=== PATIENT | female | born 1955 | race Caucasian/White ===

== ENCOUNTER 2019-09-29 17:05 | Inpatient (IN) ==
[2019-09-29] MEDS ORDERED: LACTATED RINGERS 1,000 ML IV ONE (17:29)
[2019-09-29] MEDS ORDERED: cefTRIAXone 1 GM VIAL IV ONE (18:08)
--- NOTE | 2019-09-29 18:10 | Emergency Department Note ---
Female Urogenital HPI - General Chief complaint: Urogenital-Female Stated complaint: "fever, low back pain and can't urinate" Time Seen by Provider: 09/29/19 17:27 Source: patient, family Mode of arrival: ambulatory Limitations: physical limitation - History of Present Illness HPI Narrative: This patient has had some pelvic discomfort left flank pain but is a bit debilitated due to Parkinson's disease. She does have positive urine dip for infection. No fever chills some generalized weakness. - Related Data Home Medications Medication Instructions Recorded Confirmed Carbidopa/Levodopa 25/100 [Sinemet 3 tab PO 5XD 12/13/15 05/29/19 25/100] Levothyroxine Sodium [Levoxyl] 25 mcg PO DAILY 12/13/15 05/29/19 Losartan/Hctz 50/12.5 [Hyzaar 1 tab PO BID 12/13/15 05/29/19 50/12.5] Lovastatin [Mevacor] 20 mg PO HS 12/13/15 05/29/19 metFORMIN HCL [Glucophage] 1,500 mg PO TID 12/13/15 05/29/19 ALPRAZolam [Xanax] 0.25 mg PO HSP PRN 05/29/19 05/29/19 Carbidopa/Levodopa Cr 50/200 1 tab PO HS 05/29/19 05/29/19 [Sinemet Cr 50/200] Naproxen (Pp) [Aleve 220Mg (Pp)] 220 mg PO BID PRN 05/29/19 05/29/19 Nortriptyline [Pamelor] 25 mg PO HS 05/29/19 05/29/19 Adult Aspirin PRN 09/29/19 Iron .ROUTE DAILY 09/29/19 glipiZIDE [Glipizide ER] 5 mg PO DAILY 09/29/19 09/29/19 Allergies Allergy/AdvReac Type Severity Reaction Status Date / Time codeine Allergy Mild Vomiting Verified 09/29/19 19:54 Review of Systems All systems ED: reviewed and negative except as stated. Past Medical History - Past Medical History [facility] Narrative: Medical History Muscle spasm of left shoulder (Acute) Upper respiratory infection (Acute) Medical history: Reports: asthma, other (Parkinson's disease) Surgical history ED: Reports: non-contributory - Social History smoking status: Never smoker Alcohol use: Reports: None Drug use: Reports: none Physical Exam Limitations: physical limitation General appearance: lethargic Head: atraumatic Eye: Present: normal appearance ENT: Present: normal exam Neck: Present: normal inspection Chest: Present: normal inspection Respiratory: Present: normal lung sounds bilaterally Cardiovascular: Present: regular rate, normal rhythm, normal heart sounds Abdominal: Present: soft, tenderness. Absent: distention, guarding Abdominal tenderness: Present: suprapubic, mild Back: Present: CVA tenderness (R) Neurological: Present: alert Psychiatric: Present: normal affect Skin: Present: warm, dry Course Vital Signs Temperature 98.4 F 09/29/19 17:07 Pulse Rate 76 09/29/19 17:07 Respiratory Rate 18 09/29/19 17:07 Blood Pressure 117/86 09/29/19 17:07 Pulse Oximetry (%) 99 09/29/19 17:07 Temperature 98.4 F 09/29/19 17:07 Pulse Rate 114 H 09/29/19 19:46 Respiratory Rate 21 09/29/19 19:46 Blood Pressure 135/80 09/29/19 19:46 Pulse Oximetry (%) 94 09/29/19 19:46 Urogenital-Female - MDM Narrative Medical decision making narrative: Patient initially had UTI on her urinalysis but then other lab work came back that was worrisome for sepsis with a lactic acid of 4.7 a creatinine of two- point wonders to the tripling in 4 months. Also had an elevated anion gap. Her hemoglobin has dropped 4 units from 13-9 over the last 4 months but her stool was guaiac negative. We did a CT of chest abdomen and pelvis which shows evidence of right nephritis or pyelonephritis. She has been cultured and given Rocephin and Zosyn. She will be admitted to the hospital by Dr. Stiles. We did give her 30 cc/kg of lactated Ringer's. - Lab Data Lab results reviewed: Yes I reviewed the patient's lab results. Result diagrams: 09/29/19 18:02 09/29/19 18:02 Lab Results 09/29/19 09/29/19 09/29/19 Range/Units 18:02 18:02 18:02 WBC 19.7 H (4.50-11.00) K/mcL RBC 3.70 (3.59-5.38) M/mcL Hgb 9.1 L (11.2-15.7) g/dL Hct 29.9 L (34.1-44.9) % POC Hct (36.0-48.0) % MCV 80.8 (80.0-100.0) fL MCH 24.6 L (26.0-34.0) pg MCHC 30.4 L (31.0-36.0) g/dL RDW 16.8 H (11.5-14.5) % Plt Count 342 (140-440) K/mcL MPV 9.2 (7.4-10.4) fL Gran % 88.1 H (38.0-78.0) % Lymph % (Auto) 4.2 L (15.5-49.0) % [place] % (Auto) 7.2 (1.0-12.0) % Eos % (Auto) 0.3 (0.0-7.0) % Baso % (Auto) 0.2 (0.0-2.0) % Gran # 17.31 H (1.80-8.00) K/mcL Lymph # (Auto) 0.83 L (1.50-4.80) K/mcL [place] # (Auto) 1.41 H (0.10-0.90) K/mcL Eos # (Auto) 0.06 (0.00-0.70) K/mcL Baso # (Auto) 0.04 (0.00-0.30) K/mcL VBG Lactic Acid 4.7 H* (0.5-2.0) mmol/L POC Sodium (133-145) mmol/L Sodium 129 L (133-145) mmol/L POC Potassium (3.3-5.1) mmol/L Potassium 3.4 (3.3-5.1) mmol/L POC Chloride (96-108) mmol/L Chloride 88 L (96-108) mmol/L Carbon Dioxide 19 L (22-30) mmol/L POC Total CO2 (22-30) mmol/L Anion Gap 22.0 H (8-16) POC BUN (8-23) mg/dl BUN 46 H (8-23) mg/dl Creatinine 2.1 H (0.6-1.1) mg/dl POC Creatinine (0.6-1.1) mg/dl GFR Calculation 24 Glucose 156 H (70-105) mg/dL POC Glucose (70-105) mg/dL Calcium 8.7 (8.6-10.4) mg/dl POC WB Ioniz Calcium (1.16-1.32) mmol/L Total Bilirubin 0.6 (0.0-1.0) mg/dL AST 45 H (0-37) U/l ALT < 5 (0-40) U/l Alkaline Phosphatase 162 H (39-117) U/L Total Protein 7.3 (5.9-8.4) gm/dL Albumin 4.0 (3.2-5.2) gm/dL Globulin 3.3 (2.2-3.7) gm/dL Albumin/Globulin Ratio 1.2 (1.0-2.3) Urine Color Urine Appearance Urine pH (5.0-9.0) Ur Specific [place] (1.000-1.035) Urine Protein (NEG) mg/dL Urine Glucose (UA) (NEG) mg/dL Urine Ketones (NEG) mg/dL Urine Occult Blood (<0.03) mg/dL Urine Nitrate (NEG) Urine Bilirubin (NEG) mg/dL Urine Urobilinogen (NEG) mg/dL Ur Leukocyte Esterase (NEG) /uL Urine RBC (0-1) /hpf Urine WBC (0-4) /hpf Ur Squamous Epith Cells (0-4) /hpf Ur Transition Epith Cell (0-2) /hpf Urine Bacteria (0) /hpf Hyaline Casts (0-2) /lpf Urine Mucus (0) /hpf Ur Culture Indicated? 09/29/19 09/29/19 Range/Units 18:02 18:57 WBC (4.50-11.00) K/mcL RBC (3.59-5.38) M/mcL Hgb (11.2-15.7) g/dL Hct (34.1-44.9) % POC Hct 25.0 L (36.0-48.0) % MCV (80.0-100.0) fL MCH (26.0-34.0) pg MCHC (31.0-36.0) g/dL RDW (11.5-14.5) % Plt Count (140-440) K/mcL MPV (7.4-10.4) fL Gran % (38.0-78.0) % Lymph % (Auto) (15.5-49.0) % [place] % (Auto) (1.0-12.0) % Eos % (Auto) (0.0-7.0) % Baso % (Auto) (0.0-2.0) % Gran # (1.80-8.00) K/mcL Lymph # (Auto) (1.50-4.80) K/mcL [place] # (Auto) (0.10-0.90) K/mcL Eos # (Auto) (0.00-0.70) K/mcL Baso # (Auto) (0.00-0.30) K/mcL VBG Lactic Acid (0.5-2.0) mmol/L POC Sodium 131 L (133-145) mmol/L Sodium (133-145) mmol/L POC Potassium 3.3 (3.3-5.1) mmol/L Potassium (3.3-5.1) mmol/L POC Chloride 95 L (96-108) mmol/L Chloride (96-108) mmol/L Carbon Dioxide (22-30) mmol/L POC Total CO2 22 (22-30) mmol/L Anion Gap (8-16) POC BUN 43 H (8-23) mg/dl BUN (8-23) mg/dl Creatinine (0.6-1.1) mg/dl POC Creatinine 2.1 H (0.6-1.1) mg/dl GFR Calculation Glucose (70-105) mg/dL POC Glucose 134 H (70-105) mg/dL Calcium (8.6-10.4) mg/dl POC WB Ioniz Calcium 1.01 L (1.16-1.32) mmol/L Total Bilirubin (0.0-1.0) mg/dL AST (0-37) U/l ALT (0-40) U/l Alkaline Phosphatase (39-117) U/L Total Protein (5.9-8.4) gm/dL Albumin (3.2-5.2) gm/dL Globulin (2.2-3.7) gm/dL Albumin/Globulin Ratio (1.0-2.3) Urine Color Yellow Urine Appearance Cloudy Urine pH 5.0 (5.0-9.0) Ur Specific [place] 1.019 (1.000-1.035) Urine Protein 30 A (NEG) mg/dL Urine Glucose (UA) Negative (NEG) mg/dL Urine Ketones 5/tr A (NEG) mg/dL Urine Occult Blood 0.03 A (<0.03) mg/dL Urine Nitrate Neg (NEG) Urine Bilirubin Neg (NEG) mg/dL Urine Urobilinogen Neg (NEG) mg/dL Ur Leukocyte Esterase 250 A (NEG) /uL Urine RBC 0 (0-1) /hpf Urine WBC 35 H (0-4) /hpf Ur Squamous Epith Cells 0 (0-4) /hpf Ur Transition Epith Cell < 1 (0-2) /hpf Urine Bacteria Many A (0) /hpf Hyaline Casts 26 H (0-2) /lpf Urine Mucus Few (0) /hpf Ur Culture Indicated? Yes - Radiology Data Radiology results reviewed: Yes I reviewed the patient's radiology results. Disposition Pt seen by INSTRUMENT REPAIRER/PA only: No Clinical Impression: Urinary tract infection, Sepsis Disposition: Xfer As Inpt ([facility]) Condition: Good Referrals: Aga Fernández ARNP [Primary Care Provider] - Time of Disposition: 20:16
[2019-09-29 18:32] LABS: Appearance,Urine CLOUDY; Bacteria,Urine MANY /hpf (0); Bilirubin,Urine NEG (NEG); Color,Urine YELLOW; Culture Indicated,Urine YES; Glucose,Urine (UA) NEGATIVE (NEG); Ketones,Urine 5/TR mg/dL (NEG); Leukocyte Esterase,Urine 250 /uL (NEG); Mucus,Urine FEW /hpf (0); Nitrate,Urine NEG (NEG); Protein,Urine 30 mg/dL (NEG); Specific Gravity,Urine 1.019 (1.000-1.035); Urine Blood 0.03 mg/dL (<0.03); Urine Hyaline Cast 26 /lpf (0-2); Urine RBC 0 /hpf (0-1); Urine Squamous Epithelial Cell 0 /hpf (0-4); Urine Transitional Epi Cells < 1 /hpf (0-2); Urine WBC 35 /hpf (0-4); Urobilinogen,Urine NEG (NEG)
[2019-09-29] MEDS ORDERED: PIPERACILLIN SODIUM/TAZOBACTAM 3.375 GM in DEXTROSE 5% IN WATER 50 ML IV ONE (18:37)
[2019-09-29 18:46] LABS: ALT/SGPT < 5 U/l (0-40); AST/SGOT 45 U/l (0-37); Albumin/Globulin Ratio 1.2 (1.0-2.3); Alkaline Phosphatase 162 U/L (39-117); Bilirubin,Total 0.6 mg/dL (0.0-1.0); Blood Urea Nitrogen 46 mg/dl (8-23); Calcium 8.7 mg/dl (8.6-10.4); Carbon Dioxide 19 mmol/L (22-30); Chloride 88 mmol/L (96-108); Globulin 3.3 gm/dL (2.2-3.7); Glomerular Filtration Rate 24; Glucose 156 mg/dL (70-105)
[2019-09-29 18:55] LABS: Basophils # (Auto) 0.04 K/mcL (0.00-0.30); Basophils % (Auto) 0.2 % (0.0-2.0); Eosinophils # (Auto) 0.06 K/mcL (0.00-0.70); Eosinophils % (Auto) 0.3 % (0.0-7.0); Granulocytes % (Auto) 88.1 % (38.0-78.0); Hematocrit 29.9 % (34.1-44.9); Hemoglobin 9.1 g/dL (11.2-15.7); Lymphocytes # (Auto) 0.83 K/mcL (1.50-4.80); Lymphocytes % (Auto) 4.2 % (15.5-49.0); Mean Cell Volume 80.8 fL (80.0-100.0); Mean Corpuscular HGB Conc 30.4 g/dL (31.0-36.0); Mean Platelet Volume 9.2 fL (7.4-10.4); Monocytes # (Auto) 1.41 K/mcL (0.10-0.90); Monocytes % (Auto) 7.2 % (1.0-12.0); Platelet Count 342 K/mcL (140-440); Red Cell Distribution Width 16.8 % (11.5-14.5); WBC 19.7 K/mcL (4.50-11.00)
[2019-09-29 19:06] LABS: POC Blood Urea Nitrogen 43 mg/dl (8-23); POC CO2 22 mmol/L (22-30); POC Calcium, Ionized 1.01 mmol/L (1.16-1.32); POC Chloride 95 mmol/L (96-108); POC Creatinine 2.1 mg/dl (0.6-1.1); POC Glucose, Random 134 mg/dL (70-105); POC Potassium 3.3 mmol/L (3.3-5.1); POC Sodium 131 mmol/L (133-145)
[2019-09-29] MEDS ORDERED: LACTATED RINGERS IV ONE (19:12)
--- NOTE | 2019-09-29 19:48 | Cat Scan Report ---
CLINICAL INFORMATION: Sepsis COMPARISON: None. TECHNIQUE: 0.625 mm helical slices were obtained from the lung apices through the subtrochanteric regions of the femurs. Following reconstruction, 2.5 mm sagittal, coronal and axial reformatted images were processed and reviewed at multiple windows and levels. 7 mm MIP reconstructions were obtained through the lungs to optimize nodule detection.The exam was performed using radiation dose optimization techniques including, but not limited to, automated exposure control, adjustment of the mA and/or kV according to patient size and use of iterative reconstruction technique. FINDINGS: Pulmonary parenchymal windows show the lungs are clear. There are no effusions. Mediastinal windows show the noncontrast thoracic aorta and pulmonary arteries are normal in contour and caliber. There is no adenopathy in the mediastinal, hilar or axillary regions. Esophagus is grossly normal. The heart is at the upper limits of normal in size with scattered calcific plaque in the coronary arteries. The thyroid is unremarkable. Abdominal images show the noncontrasted liver is normal in size, configuration and attenuation. The gallbladder is surgically absent. Intrahepatic and common bile ducts are normal caliber: CBD is 5 mm. The right kidney is mildly enlarged with inflammation in the perinephric fat suggesting right nephritis. There is no mario renal abscess or hydronephrosis. The noncontrasted left kidney, both adrenal glands, spleen, pancreas and aorta are normal. There is no free air, free fluid or adenopathy. Pelvic images show urinary bladder to be normal in size without focal lesion. Hysterectomy/ oophorectomy changes noted. There are multiple sigmoid diverticuli, but no evidence of diverticulitis. The remaining colon, appendix, small bowel and stomach are normal. Bone windows show no osseous abnormality IMPRESSION: Mild enlargement of the right kidney with inflammation in the perinephric fat suggesting right nephritis. No evidence of mario abscess. Sigmoid diverticulosis, but no CT evidence for diverticulitis. Scattered calcific plaque in the coronary arteries. Interpreted and Authenticated by: Santo Batista 09/29/19
--- NOTE | 2019-09-29 20:40 | Internal Med History&Physical ---
Medical - H&P: [facility] Patient information: Note initiated : 09/29/19 at 8:37 pm Service Date, if different from initiated Date: [] Patient: Radha Ruiz a 64 y/o F admitted on for "fever, low back pain and can't urinate". Chief Complaint: [] History of present illness: Ms. Ruiz is a 64 year old F Patient presents the ED complaining of fever and chills for several days as well as low back pain in the middle. She is complained of dysuria and frequency. In the ED she is found to have leukocytosis tachypneic and tachycardic as well as acute kidney injury. She had elevated lactate levels. Her blood pressure stable at the moment. Urinalysis concerning for urinary tract infection. Past urine cultures have grown Citrobacter. She has a history of iron deficiency anemia has been on iron in the past and per notes she has become anemic quickly off of iron. Of note she is anemic here in the ED. she states she is taking iron. Patient denies diarrhea. Patient denies feeling weaker than usual. No gross bleeding per ED. Review of Systems: Pertinent positives as above, and headache. Denies nausea/vomiting/chest or abdominal pain/cough/dyspnea/diarrhea. Remaining 10 point review of system reviewed negative. Medical - H&P: PMH Medical history: Past medical history includes iron deficiency anemia Diabetes Hypertension Hyperlipidemia Parkinson's Anxiety Hypothyroidism Chronic low back pain and cervical spine pain Obesity Past surgical history: Shoulder surgery x2 Cholecystectomy Hysterectomy Hernia repair Family: Mother heart disease Father cancer and diabetes Social history: Patient quit smoking 1977 Denies alcohol use Uses a cane typically and occasionally walker Lives at home with Medical - H&P: Meds Home Medications Medication Instructions Recorded Confirmed Type Carbidopa/Levodopa 25/100 [Sinemet 3 tab PO 5XD 12/13/15 05/29/19 History 25/100] Levothyroxine Sodium [Levoxyl] 25 mcg PO DAILY 12/13/15 05/29/19 History Losartan/Hctz 50/12.5 [Hyzaar 1 tab PO BID 12/13/15 05/29/19 History 50/12.5] Lovastatin [Mevacor] 20 mg PO HS 12/13/15 05/29/19 History metFORMIN HCL [Glucophage] 1,500 mg PO TID 12/13/15 05/29/19 History ALPRAZolam [Xanax] 0.25 mg PO HSP PRN 05/29/19 05/29/19 History Carbidopa/Levodopa Cr 50/200 1 tab PO HS 05/29/19 05/29/19 History [Sinemet Cr 50/200] Naproxen (Pp) [Aleve 220Mg (Pp)] 220 mg PO BID PRN 05/29/19 05/29/19 History Nortriptyline [Pamelor] 25 mg PO HS 05/29/19 05/29/19 History Adult Aspirin PRN 09/29/19 History Iron .ROUTE DAILY 09/29/19 History glipiZIDE [Glipizide ER] 5 mg PO DAILY 09/29/19 09/29/19 History Allergies Allergy/AdvReac Type Severity Reaction Status Date / Time codeine Allergy Mild Vomiting Verified 09/29/19 19:54 Medical - H&P: Exam - Constitutional Vitals: Temp Pulse Resp BP Pulse Ox 98.4 F 116 H 21 141/79 94 09/29/19 17:07 09/29/19 20:01 09/29/19 20:01 09/29/19 20:01 09/29/19 20:01 Exam: General: Alert, Awake, No acute Distress, obese Eyes/N/T: EOMI, PERRL, dry MM Head/Neck: neck supple, normocephalic atraumatic CV: RRR, No murmurs, normal s1/s2 Pulm: Clear b/l, no wheezing/rhonchi/rales Abd: soft, nontender, +BS x4 Ext: no clubbing/cyanosis/edema Neuro: Alert, no focal deficits, moves all extremities, CN 2-12 grossly intact, symmetrical strength b/l upper/lower, sensations intact b/l upper/lower Skin: warm/dry Back: Costovertebral angle tenderness on the right Medical - H&P: Reslt - Labs CBC & Chem 7: 09/29/19 18:02 09/29/19 18:02 Labs: Short CBC 09/29/19 Range/Units 18:02 WBC 19.7 H (4.50-11.00) K/mcL Hgb 9.1 L (11.2-15.7) g/dL Hct 29.9 L (34.1-44.9) % Plt Count 342 (140-440) K/mcL BMP 09/29/19 18:02 Sodium 129 L Potassium 3.4 Chloride 88 L Carbon Dioxide 19 L BUN 46 H Creatinine 2.1 H Glucose 156 H Calcium 8.7 Liver Function 09/29/19 Range/Units 18:02 Total Bilirubin 0.6 (0.0-1.0) mg/dL AST 45 H (0-37) U/l ALT < 5 (0-40) U/l Alkaline Phosphatase 162 H (39-117) U/L Albumin 4.0 (3.2-5.2) gm/dL Urine 09/29/19 Range/Units 18:02 Urine Color Yellow Urine Appearance Cloudy Urine pH 5.0 (5.0-9.0) Ur Specific [place] 1.019 (1.000-1.035) Urine Protein 30 A (NEG) mg/dL Urine Glucose (UA) Negative (NEG) mg/dL Medical - H&P: A/P - Narrative A/P Narrative: A: *Pyelonephritis: *SIRS: *Lactic acidosis: *Metabolic acidosis, anion gap: 2/2 lactic acidosis *AMANDA: 2/2 volume depletion *Hyponatremia: is on HCTZ *h/o DAMASO, acute on chronic: *DM: *HTN/HLD: *Parkinson's: *Anxiety: *Hypothyroidism: *Obesity: * P: -IVF, f/u lactate -Zosyn, pending UC/BC -f/u renal fxn, monitor UOP - -monitor H&H, is on iron -hold ARB/HCTZ -continue parkinson meds -SSI - -pt/ot -ppx: Lovenox full code
[2019-09-29] MEDS ORDERED: 0.9 % SODIUM CHLORIDE 1,000 ML IV SCH (21:11)
[2019-09-29] MEDS ORDERED: DEXTROSE 50% 50 ML VIAL IV PRN (21:11)
[2019-09-29] MEDS ORDERED: ACETAMINOPHEN 325 MG TABLET PO PRN (21:11)
[2019-09-29] MEDS ORDERED: ONDANSETRON 4 MG/2 ML VIAL IV PRN (21:11)
[2019-09-29] MEDS ORDERED: POTASSIUM CHLORIDE 40 MEQ in DEXTROSE 5% IN WATER 500 ML IV PRN (21:11)
[2019-09-29] MEDS ORDERED: NOREPINEPHRINE BITARTRATE 16 MG in 0.9 % SODIUM CHLORIDE 234 ML IV SCH (21:11)
[2019-09-29] MEDS ORDERED: SENNOSIDES 1 TABLET PO PRN (21:11)
[2019-09-29] MEDS ORDERED: LACTULOSE 20 GM/30 ML ORAL.SOL PO PRN (21:11)
[2019-09-29] MEDS ORDERED: DEXTROSE 31 GM ORAL.SUSP PO PRN (21:11)
[2019-09-29] MEDS ORDERED: POTASSIUM CHLORIDE 20 MEQ TABLET PO PRN (21:11)
[2019-09-29] MEDS ORDERED: NOREPINEPHRINE BITARTRATE 16 MG in 0.9 % SODIUM CHLORIDE 234 ML IV PRN (21:30)
[2019-09-29] MEDS: DOCUSATE SODIUM 100 MG CAPSULE PO SCH (22:18)
[2019-09-29] MEDS: MELATONIN 3 MG TABLET PO SCH (23:50)
[2019-09-29] MEDS: 0.9 % SODIUM CHLORIDE 10 ML SYRINGE IV SCH ×2 (23:52→23:53)
[2019-09-29] MEDS: INSULIN LISPRO 1 UNIT/0.01 ML UNIT SQ SCH (23:53)
[2019-09-29] MEDS: CARBIDOPA/LEVODOPA 25/100 TABLET PO SCH (23:57)
[2019-09-30] MEDS: PIPERACILLIN SODIUM/TAZOBACTAM 3.375 GM in DEXTROSE 5% IN WATER 50 ML IV SCH ×4 (00:51→17:37)
[2019-09-30] MEDS: HYDROcodone/APAP 5/325MG TABLET PO PRN ×4 (02:26→20:50)
[2019-09-30] MEDS: IPRATROPIUM/ALBUTEROL 3 ML AMPUL.NEB NEB PRN (02:27)
[2019-09-30] MEDS: CARBIDOPA/LEVODOPA 25/100 TABLET PO SCH ×4 (03:55→15:45)
[2019-09-30] MEDS: 0.9 % SODIUM CHLORIDE 10 ML SYRINGE IV SCH ×3 (05:20→20:54)
[2019-09-30 06:30] LABS: Basophils # (Auto) 0.01 K/mcL (0.00-0.30); Basophils % (Auto) 0.1 % (0.0-2.0); Eosinophils # (Auto) 0.01 K/mcL (0.00-0.70); Eosinophils % (Auto) 0.1 % (0.0-7.0); Granulocytes % (Auto) 87.6 % (38.0-78.0); Hematocrit 27.6 % (34.1-44.9); Hemoglobin 8.5 g/dL (11.2-15.7); Lymphocytes % (Auto) 5.6 % (15.5-49.0); Mean Cell Volume 80.2 fL (80.0-100.0); Mean Corpuscular HGB Conc 30.8 g/dL (31.0-36.0); Mean Platelet Volume 9.3 fL (7.4-10.4); Monocytes # (Auto) 0.95 K/mcL (0.10-0.90); Monocytes % (Auto) 6.6 % (1.0-12.0); Platelet Count 312 K/mcL (140-440); RBC 3.44 M/mcL (3.59-5.38); WBC 14.3 K/mcL (4.50-11.00)
[2019-09-30 06:46] LABS: ALT/SGPT < 5 U/l (0-40); AST/SGOT 36 U/l (0-37); Albumin 3.3 gm/dL (3.2-5.2); Albumin/Globulin Ratio 1.1 (1.0-2.3); Alkaline Phosphatase 162 U/L (39-117); Bilirubin,Direct < 0.2 mg/dL (0.0-0.3); Bilirubin,Total 0.5 mg/dL (0.0-1.0); Blood Urea Nitrogen 40 mg/dl (8-23); Calcium 8.5 mg/dl (8.6-10.4); Carbon Dioxide 23 mmol/L (22-30); Chloride 94 mmol/L (96-108); Glomerular Filtration Rate 33; Glucose 135 mg/dL (70-105); Lactate Dehydrogenase 196 U/L (94-250); Phosphorous 3.6 mg/dL (2.7-4.5); Triglycerides 151 mg/dl (<150); Uric Acid 7.1 mg/dL (2.5-8.0)
[2019-09-30] MEDS: INSULIN LISPRO 1 UNIT/0.01 ML UNIT SQ SCH ×5 (07:26→20:53)
[2019-09-30] MEDS: LEVOTHYROXINE 25 MCG TABLET PO SCH (07:27)
[2019-09-30] MEDS ORDERED: POTASSIUM CHLORIDE 20 MEQ TABLET PO ONE (07:32)
--- NOTE | 2019-09-30 07:35 | Internal Med Progress Note ---
Medical - PN: Subj Patient information: Note initiated : 09/30/19 at 7:30 am Service Date, if different from initiated Date: [] Patient: Radha Ruiz a 64 y/o F admitted on 09/29/19 for "fever, low back pain and can't urinate". Chief Complaint: [] Interval history: Ms. Ruiz is a 64 year old F Patient presents the ED complaining of fever and chills for several days as well as low back pain in the middle. She is complained of dysuria and frequency. In the ED she is found to have leukocytosis tachypneic and tachycardic as well as acute kidney injury. She had elevated lactate levels. Her blood pressure stable at the moment. Urinalysis concerning for urinary tract infection. Past urine cultures have grown Citrobacter. She has a history of iron deficiency anemia has been on iron in the past and per notes she has become anemic quickly off of iron. Of note she is anemic here in the ED. she states she is taking iron. Patient denies diarrhea. Patient denies feeling weaker than usual. No gross bleeding per ED. 2/10 Feeling better today. Sitting up eating breakfast. Occasional cough nonproductive does cause a bit of a headache sometimes, otherwise no complaints. Good urine output and renal function improved, lactic acidosis resolved. Review of Systems: denies headache/fever/chills/nausea/vomiting/chest or abdominal pain/dyspnea/diarrhea. Otherwise see above. - Constitutional Vitals: Vital Signs Temp Pulse Resp BP Pulse Ox 97.8 F 93 H 24 H 109/68 93 09/30/19 04:01 09/30/19 06:01 09/30/19 07:14 09/30/19 06:01 09/30/19 06:01 Period Temp Pulse Resp BP Sys/Cespedes Pulse Ox Last 24 Hr 97.3 F-98.9 F 76-119 17-27 108-141/52-91 88-99 Intake and Output 09/29/19 09/30/19 09/30/19 21:59 05:59 13:59 Intake Total 2350 167 Output Total 250 950 Balance 2100 -783 Weight 78.109 kg Intake & Output: Intake & Output 09/29/19 09/30/19 09/30/19 21:59 05:59 13:59 Intake Total 2350 167 Output Total 250 950 Balance 2100 -783 Weight 78.109 kg Intake: IV 2350 167 Sodium Chloride 0.9% 1,000 ml @ 117 100 mls/hr IV .Q10H [facility] Rx#: [id number] Lactated Ringers 1,300 ml @ 2300 Wide Open IV BOLUS ONE Rx#: [id number] Zosyn 3.375 gm In Dextrose 5% 50 50 in Water 50 ml @ 100 mls/hr IV Q6H [facility] Rx#:[id number] Output: Void Amount 250 950 Other: Urine Appearance Clear Fem Cath Cloudy Urine Color Dark Yellow Fem Cath Straw Urine Odor Normal Stool Size Small Moderate Stool Color Brown Brown Stool Consistency Formed Soft # Bowel Movements 1 Exam: General: Alert, Awake, No acute Distress, obese Eyes/N/T: EOMI, Head/Neck: neck supple, CV: RRR, No murmurs, Pulm: Clear b/l, no wheezing/rhonchi/rales Abd: soft, nontender, +BS x4 Ext: no clubbing/cyanosis/edema Neuro: Alert, no focal deficits, moves all extremities, Skin: warm/dry Back: mild Costovertebral angle tenderness on the right Medical - PN: Obj Da - Labs CBC & Chem 7: 09/30/19 05:00 09/30/19 05:00 Labs: Abnormal Lab Results 09/30/19 09/30/19 09/29/19 05:00 05:00 21:15 WBC 14.3 H RBC 3.44 L Hgb 8.5 L Hct 27.6 L POC Hct MCH 24.7 L MCHC 30.8 L RDW 17.0 H Gran % 87.6 H Lymph % (Auto) 5.6 L Gran # 12.56 H Lymph # (Auto) 0.80 L [place] # (Auto) 0.95 H VBG Lactic Acid 2.3 H POC Sodium Sodium Potassium 3.2 L POC Chloride Chloride 94 L Carbon Dioxide Anion Gap POC BUN BUN 40 H Creatinine 1.6 H POC Creatinine Glucose 135 H POC Glucose Calcium 8.5 L POC WB Ioniz Calcium GGT 70 H AST Alkaline Phosphatase 162 H Triglycerides 151 H Urine Protein Urine Ketones Urine Occult Blood Ur Leukocyte Esterase Urine WBC Urine Bacteria Hyaline Casts 09/29/19 09/29/19 09/29/19 18:57 18:02 18:02 WBC RBC Hgb Hct POC Hct 25.0 L MCH MCHC RDW Gran % Lymph % (Auto) Gran # Lymph # (Auto) [place] # (Auto) VBG Lactic Acid 4.7 H* POC Sodium 131 L Sodium Potassium POC Chloride 95 L Chloride Carbon Dioxide Anion Gap POC BUN 43 H BUN Creatinine POC Creatinine 2.1 H Glucose POC Glucose 134 H Calcium POC WB Ioniz Calcium 1.01 L GGT AST Alkaline Phosphatase Triglycerides Urine Protein 30 A Urine Ketones 5/tr A Urine Occult Blood 0.03 A Ur Leukocyte Esterase 250 A Urine WBC 35 H Urine Bacteria Many A Hyaline Casts 26 H 09/29/19 09/29/19 18:02 18:02 WBC 19.7 H RBC Hgb 9.1 L Hct 29.9 L POC Hct MCH 24.6 L MCHC 30.4 L RDW 16.8 H Gran % 88.1 H Lymph % (Auto) 4.2 L Gran # 17.31 H Lymph # (Auto) 0.83 L [place] # (Auto) 1.41 H VBG Lactic Acid POC Sodium Sodium 129 L Potassium POC Chloride Chloride 88 L Carbon Dioxide 19 L Anion Gap 22.0 H POC BUN BUN 46 H Creatinine 2.1 H POC Creatinine Glucose 156 H POC Glucose Calcium POC WB Ioniz Calcium GGT AST 45 H Alkaline Phosphatase 162 H Triglycerides Urine Protein Urine Ketones Urine Occult Blood Ur Leukocyte Esterase Urine WBC Urine Bacteria Hyaline Casts Meds: Medications Acetaminophen (Tylenol) 650 mg PO Q6HP PRN PRN Reason: PAIN/FEVER > 101 Hydrocodone Bitart/Acetaminophen (Pe[place]ic 5/325mg) 1 tab PO Q4HP PRN PRN Reason: PAIN LEVEL 3-6 Last Admin: 09/30/19 02:26 Dose: 1 tab Documented by: Albuterol/Ipratropium (Duoneb) 3 ml NEB Q4HP PRN PRN Reason: Shortness Of Breath Last Admin: 09/30/19 02:27 Dose: 3 ml Documented by: Alprazolam (Xanax) 0.25 mg PO HSP PRN PRN Reason: Agitation Carbidopa/Levodopa (Sinemet 25/100) 3 tab PO TID@0000,0400,0800 [facility] Last Admin: 09/30/19 03:55 Dose: 3 tab Documented by: Carbidopa/Levodopa (Sinemet Cr 25/100) 2 tab PO DAILY@2000 [facility] Carbidopa/Levodopa (Sinemet 25/100) 3 tab PO BID@1200,1600 [facility] Dextrose (Dextrose 50%) 0 ml IV UD PRN PRN Reason: Hypoglycemia Diagnostic Test (Pha) (Accu-Chek) 1 each FS ACHS [facility] Last Admin: 09/30/19 07:25 Dose: 1 each Documented by: Docusate Sodium (Colace) 100 mg PO BID [facility] Last Admin: 09/29/19 22:18 Dose: Not Given Documented by: Enoxaparin Sodium (Lovenox) 30 mg SQ DAILY [facility] Glucose (Insta-Glucose) 15 gm PO PRN PRN PRN Reason: Hypoglycemia Potassium Chloride 40 meq/ (Dextrose) 520 mls @ 130 mls/hr IV UD PRN PRN Reason: Potassium < 3 Magnesium Sulfate (Magnesium Sulfate) 2 gm in 50 mls @ 50 mls/hr IV UD PRN PRN Reason: Magnesium </= 1.6 Piperacillin Sod/Tazobactam (Sod 3.375 gm/ Dextrose) 50 mls @ 100 mls/hr IV Q6H [facility]; Protocol Last Admin: 09/30/19 07:25 Dose: 100 mls/hr Documented by: Norepinephrine Bitartrate 16 (mg/ Sodium Chloride) 250 mls @ 9.375 mls/hr IV Q24HP PRN; Protocol PRN Reason: TO KEEP MAP >65 Insulin Human Lispro (Humalog) 0 unit SQ [facility]; Protocol Last Admin: 09/30/19 07:26 Dose: Not Given Documented by: Lactulose (Cephulac) 20 gm PO DAILYP PRN PRN Reason: Constipation Levothyroxine Sodium (Synthroid) 25 mcg PO ACB [facility] Last Admin: 09/30/19 07:27 Dose: 25 mcg Documented by: Melatonin (Melatonin 3mg Tablet) 3 mg PO QHS [facility] Last Admin: 09/29/19 23:50 Dose: 3 mg Documented by: Nortriptyline HCl (Pamelor) 25 mg PO HS [facility] Ondansetron HCl (Zofran) 4 mg IV Q4HP PRN PRN Reason: Nausea And Vomiting Polyethylene Glycol (Miralax) 17 gm PO DAILYP PRN PRN Reason: Constipation Potassium Chloride (Kdur) 40 meq PO UD PRN PRN Reason: Potssium is 3-3.5 Potassium Chloride (Kdur) 40 meq PO UD PRN PRN Reason: Potassium < 3 Senna (Senokot) 2 tab PO DAILYP PRN PRN Reason: Constipation Simvastatin (Zocor) 10 mg PO HS [facility] Sodium Chloride (Saline Flush) 10 ml IV Q8 [facility] Last Admin: 09/30/19 05:20 Dose: 10 ml Documented by: Medical - PN: A/P - Time Spent With Patient Total time spent is greater than 50% in coordination of care (as documented) at patient's floor/unit and/or counseling patient: - Narrative A/P Narrative: A: *Pyelonephritis: *SIRS: -leukocytosis improving *Lactic acidosis: resolved *Metabolic acidosis, anion gap: 2/2 lactic acidosis *AMANDA: 2/2 volume depletion -Improving *Hyponatremia: is on HCTZ -resolved *acute on chronic with h/o DAMASO: also dilution component *DM: *HTN/HLD: *Parkinson's: *Anxiety: *Hypothyroidism: *Obesity: P: -Zosyn, pending UC/BC -monitor H&H, is on iron at home -hold ARB/HCTZ -continue parkinson meds -SSI - -pt/ot -ppx: Lovenox full code
[2019-09-30] MEDS: POTASSIUM CHLORIDE 20 MEQ TABLET PO PRN (07:49)
[2019-09-30] MEDS: DOCUSATE SODIUM 100 MG CAPSULE PO SCH ×3 (08:00→20:49)
[2019-09-30] MEDS: MAGNESIUM SULFATE 2 GM/50 ML BAG IV PRN (08:06)
[2019-09-30] MEDS: ENOXAPARIN 30 MG/0.3 ML SYRINGE SQ SCH (08:55)
[2019-09-30] MEDS: ALPRAZolam 0.25 MG TABLET PO PRN (15:44)
[2019-09-30 17:53] LABS: Hematocrit 26.6 % (34.1-44.9); Hemoglobin 8.2 g/dL (11.2-15.7)
[2019-09-30] MEDS: AMANTADINE HCL 100 MG CAPSULE PO SCH (19:08)
[2019-09-30] MEDS ORDERED: CARBIDOPA/LEVODOPA CR 25/100 TABLET PO SCH (20:00)
[2019-09-30] MEDS: MELATONIN 3 MG TABLET PO SCH (20:49)
[2019-09-30] MEDS: SIMVASTATIN 10 MG TABLET PO SCH (20:49)
[2019-09-30] MEDS: NORTRIPTYLINE 25 MG CAPSULE PO SCH (20:50)
[2019-10-01] MEDS: CARBIDOPA/LEVODOPA 25/100 TABLET PO SCH ×5 (00:12→19:37)
[2019-10-01] MEDS: PIPERACILLIN SODIUM/TAZOBACTAM 3.375 GM in DEXTROSE 5% IN WATER 50 ML IV SCH ×3 (00:13→11:37)
[2019-10-01] MEDS: HYDROcodone/APAP 5/325MG TABLET PO PRN ×3 (02:04→18:21)
[2019-10-01] MEDS: 0.9 % SODIUM CHLORIDE 10 ML SYRINGE IV SCH ×3 (05:46→22:00)
[2019-10-01] MEDS: INSULIN LISPRO 1 UNIT/0.01 ML UNIT SQ SCH ×4 (07:17→21:00)
[2019-10-01] MEDS: LEVOTHYROXINE 25 MCG TABLET PO SCH (07:55)
[2019-10-01] MEDS: DOCUSATE SODIUM 100 MG CAPSULE PO SCH ×2 (08:33→19:36)
[2019-10-01] MEDS: AMANTADINE HCL 100 MG CAPSULE PO SCH ×2 (08:33→19:36)
[2019-10-01] MEDS: ENOXAPARIN 30 MG/0.3 ML SYRINGE SQ SCH (08:34)
[2019-10-01] MEDS: POLYETHYLENE GLYCOL 3350 17 GM PACKET PO PRN (09:10)
--- NOTE | 2019-10-01 09:46 | Internal Med Progress Note ---
Medical - PN: Subj Patient information: Note initiated : 10/01/19 at 9:43 am Service Date, if different from initiated Date: [] Patient: Radha Ruiz a 64 y/o F admitted on 09/29/19 for "fever, low back pain and can't urinate". Chief Complaint: [] Interval history: Ms. Ruiz is a 64 year old F Patient presents the ED complaining of fever and chills for several days as well as low back pain in the middle. She is complained of dysuria and frequency. In the ED she is found to have leukocytosis tachypneic and tachycardic as well as acute kidney injury. She had elevated lactate levels. Her blood pressure stable at the moment. Urinalysis concerning for urinary tract infection. Past urine cultures have grown Citrobacter. She has a history of iron deficiency anemia has been on iron in the past and per notes she has become anemic quickly off of iron. Of note she is anemic here in the ED. she states she is taking iron. Patient denies diarrhea. Patient denies feeling weaker than usual. No gross bleeding per ED. 09/30 Feeling better today. Sitting up eating breakfast. Occasional cough nonproductive does cause a bit of a headache sometimes, otherwise no complaints. Good urine output and renal function improved, lactic acidosis resolved. 10/01-patient doing remarkably better. White count downtrending. Stable hemodynamics. No overnight events except for increasing choreoathetotic dyskinetic movements responded well to amantadine. E. coli on urine culture. On antibiotic coverage. De-escalate based on sensitivities. Transfer out of ICU. Stable hemodynamics. - Constitutional Vitals: Vital Signs Temp Pulse Resp BP Pulse Ox 97.6 F 87 13 138/79 100 10/01/19 08:01 10/01/19 08:01 10/01/19 08:01 10/01/19 08:01 10/01/19 08:01 Period Temp Pulse Resp BP Sys/Cespedes Pulse Ox Last 24 Hr 97.2 F-98.8 F 81-119 13-30 88-146/55-85 90-100 Intake and Output 09/30/19 10/01/19 10/01/19 21:59 05:59 13:59 Intake Total 650 290 50 Output Total 827 330 30 Balance -177 -40 20 Weight 174 lb 6.4 oz Intake & Output: Intake & Output 09/30/19 10/01/19 10/01/19 21:59 05:59 13:59 Intake Total 650 290 50 Output Total 827 330 30 Balance -177 -40 20 Weight 174 lb 6.4 oz Intake: IV 50 50 50 Zosyn 3.375 gm In Dextrose 5% 50 50 50 in Water 50 ml @ 100 mls/hr IV Q6H [facility] Rx#:[id number] Oral 600 240 Output: Urine Catheter Amount 725 330 30 Void Amount 100 # of times incontinent of urine 2 Other: Urine Appearance Cloudy Clear Clear Fem Cath Clear Clear Urine Color Dark Yellow Dark Yellow Dark Yellow Fem Cath Straw Straw Urine Odor Strong Normal Normal Fem Cath Strong General appearance: no acute distress Exam: Alert oriented Nonlabored breathing Choreoathetotic movement No lymphedema Coles is draining clear urine Medical - PN: Obj Da - Labs CBC & Chem 7: 09/30/19 16:03 09/30/19 05:00 Labs: Abnormal Lab Results 09/30/19 09/30/19 09/30/19 16:03 05:00 05:00 WBC 14.3 H RBC 3.44 L Hgb 8.2 L 8.5 L Hct 26.6 L 27.6 L POC Hct MCH 24.7 L MCHC 30.8 L RDW 17.0 H Gran % 87.6 H Lymph % (Auto) 5.6 L Gran # 12.56 H Lymph # (Auto) 0.80 L [place] # (Auto) 0.95 H VBG Lactic Acid POC Sodium Sodium Potassium 3.2 L POC Chloride Chloride 94 L Carbon Dioxide Anion Gap POC BUN BUN 40 H Creatinine 1.6 H POC Creatinine Glucose 135 H POC Glucose Calcium 8.5 L POC WB Ioniz Calcium GGT 70 H AST Alkaline Phosphatase 162 H Triglycerides 151 H Urine Protein Urine Ketones Urine Occult Blood Ur Leukocyte Esterase Urine WBC Urine Bacteria Hyaline Casts 09/29/19 09/29/19 09/29/19 21:15 18:57 18:02 WBC RBC Hgb Hct POC Hct 25.0 L MCH MCHC RDW Gran % Lymph % (Auto) Gran # Lymph # (Auto) [place] # (Auto) VBG Lactic Acid 2.3 H POC Sodium 131 L Sodium Potassium POC Chloride 95 L Chloride Carbon Dioxide Anion Gap POC BUN 43 H BUN Creatinine POC Creatinine 2.1 H Glucose POC Glucose 134 H Calcium POC WB Ioniz Calcium 1.01 L GGT AST Alkaline Phosphatase Triglycerides Urine Protein 30 A Urine Ketones 5/tr A Urine Occult Blood 0.03 A Ur Leukocyte Esterase 250 A Urine WBC 35 H Urine Bacteria Many A Hyaline Casts 26 H 09/29/19 09/29/19 09/29/19 18:02 18:02 18:02 WBC 19.7 H RBC Hgb 9.1 L Hct 29.9 L POC Hct MCH 24.6 L MCHC 30.4 L RDW 16.8 H Gran % 88.1 H Lymph % (Auto) 4.2 L Gran # 17.31 H Lymph # (Auto) 0.83 L [place] # (Auto) 1.41 H VBG Lactic Acid 4.7 H* POC Sodium Sodium 129 L Potassium POC Chloride Chloride 88 L Carbon Dioxide 19 L Anion Gap 22.0 H POC BUN BUN 46 H Creatinine 2.1 H POC Creatinine Glucose 156 H POC Glucose Calcium POC WB Ioniz Calcium GGT AST 45 H Alkaline Phosphatase 162 H Triglycerides Urine Protein Urine Ketones Urine Occult Blood Ur Leukocyte Esterase Urine WBC Urine Bacteria Hyaline Casts Meds: Medications Acetaminophen (Tylenol) 650 mg PO Q6HP PRN PRN Reason: PAIN/FEVER > 101 Hydrocodone Bitart/Acetaminophen ([place] 5/325mg) 1 tab PO Q4HP PRN PRN Reason: PAIN LEVEL 3-6 Last Admin: 10/01/19 02:04 Dose: 1 tab Documented by: Albuterol/Ipratropium (Duoneb) 3 ml NEB Q4HP PRN PRN Reason: Shortness Of Breath Last Admin: 09/30/19 02:27 Dose: 3 ml Documented by: Alprazolam (Xanax) 0.25 mg PO HSP PRN PRN Reason: Agitation Last Admin: 09/30/19 15:44 Dose: 0.25 mg Documented by: Amantadine HCl (Amantadine) 100 mg PO BID [facility] Last Admin: 10/01/19 08:33 Dose: 100 mg Documented by: Carbidopa/Levodopa (Sinemet 25/100) 3 tab PO TID@0000,0400,0800 [facility] Last Admin: 10/01/19 08:33 Dose: 3 tab Documented by: Carbidopa/Levodopa (Sinemet Cr 25/100) 2 tab PO DAILY@2000 [facility] Last Admin: 09/30/19 19:54 Dose: 2 tab Documented by: Carbidopa/Levodopa (Sinemet 25/100) 3 tab PO BID@1200,1600 [facility] Last Admin: 09/30/19 15:45 Dose: 3 tab Documented by: Dextrose (Dextrose 50%) 0 ml IV UD PRN PRN Reason: Hypoglycemia Diagnostic Test (Pha) (Accu-Chek) 1 each FS [facility] Last Admin: 10/01/19 07:16 Dose: 1 each Documented by: Docusate Sodium (Colace) 100 mg PO BID [facility] Last Admin: 10/01/19 08:33 Dose: 100 mg Documented by: Enoxaparin Sodium (Lovenox) 30 mg SQ DAILY [facility] Last Admin: 10/01/19 08:34 Dose: 30 mg Documented by: Glucose (Insta-Glucose) 15 gm PO PRN PRN PRN Reason: Hypoglycemia Potassium Chloride 40 meq/ (Dextrose) 520 mls @ 130 mls/hr IV UD PRN PRN Reason: Potassium < 3 Magnesium Sulfate (Magnesium Sulfate) 2 gm in 50 mls @ 50 mls/hr IV UD PRN PRN Reason: Magnesium </= 1.6 Last Infusion: 09/30/19 09:06 Dose: Infused Documented by: Piperacillin Sod/Tazobactam (Sod 3.375 gm/ Dextrose) 50 mls @ 100 mls/hr IV Q6H [facility]; Protocol Last Infusion: 10/01/19 06:16 Dose: Infused Documented by: Norepinephrine Bitartrate 16 (mg/ Sodium Chloride) 250 mls @ 9.375 mls/hr IV Q24HP PRN; Protocol PRN Reason: TO KEEP MAP >65 Insulin Human Lispro (Humalog) 0 unit SQ [facility]; Protocol Last Admin: 10/01/19 07:17 Dose: Not Given Documented by: Lactulose (Cephulac) 20 gm PO DAILYP PRN PRN Reason: Constipation Levothyroxine Sodium (Synthroid) 25 mcg PO ACB [facility] Last Admin: 10/01/19 07:55 Dose: 25 mcg Documented by: Melatonin (Melatonin 3mg Tablet) 3 mg PO QHS [facility] Last Admin: 09/30/19 20:49 Dose: 3 mg Documented by: Nortriptyline HCl (Pamelor) 25 mg PO HS [facility] Last Admin: 09/30/19 20:50 Dose: 25 mg Documented by: Ondansetron HCl (Zofran) 4 mg IV Q4HP PRN PRN Reason: Nausea And Vomiting Polyethylene Glycol (Miralax) 17 gm PO DAILYP PRN PRN Reason: Constipation Last Admin: 10/01/19 09:10 Dose: 17 gm Documented by: Potassium Chloride (Kdur) 40 meq PO UD PRN PRN Reason: Potssium is 3-3.5 Last Admin: 09/30/19 07:49 Dose: 40 meq Documented by: Potassium Chloride (Kdur) 40 meq PO UD PRN PRN Reason: Potassium < 3 Senna (Senokot) 2 tab PO DAILYP PRN PRN Reason: Constipation Simvastatin (Zocor) 10 mg PO HS [facility] Last Admin: 09/30/19 20:49 Dose: 10 mg Documented by: Sodium Chloride (Saline Flush) 10 ml IV Q8 [facility] Last Admin: 10/01/19 05:46 Dose: 10 ml Documented by: Medical - PN: A/P - Time Spent With Patient Total time spent is greater than 50% in coordination of care (as documented) at patient's floor/unit and/or counseling patient: 25 - 35 minutes - Narrative A/P Narrative: * Complicated E. coli UTI/acute pyelonephritis continue antibiotic coverage * Severe sepsis secondary to above clinically improving. On antibiotic coverage. Lactate normalized. White count downtrending. Stable hemodynamics. * Acute renal failure secondary to sepsis endorgan dysfunction. Clinically improving. Creatinine down to 1.6 * Hyponatremia secondary to thiazide, stable * DM type II continue sliding-scale insulin/CC diet * Hypertension-medication on hold in light of sepsis * History of Parkinson disease on levodopa carbidopa/amantadine * Anxiety disorder on as needed olanzapine * Hypothyroidism on thyroxine * Full code Plan * Antibiotic coverage * Pre-existing medical condition management as above * Monitor renal function * PT OT nutrition support * Discharge planning
[2019-10-01 10:17] LABS: ALT/SGPT < 5 U/l (0-40); AST/SGOT 35 U/l (0-37); Albumin 3.1 gm/dL (3.2-5.2); Alkaline Phosphatase 278 U/L (39-117); Bilirubin,Direct < 0.2 mg/dL (0.0-0.3); Bilirubin,Total 0.4 mg/dL (0.0-1.0); Blood Urea Nitrogen 32 mg/dl (8-23); Calcium 8.8 mg/dl (8.6-10.4); Carbon Dioxide 23 mmol/L (22-30); Chloride 96 mmol/L (96-108); Globulin 3.1 gm/dL (2.2-3.7); Glomerular Filtration Rate 39; Glucose 59 mg/dL (70-105); Lactate Dehydrogenase 282 U/L (94-250); Phosphorous 3.6 mg/dL (2.7-4.5); Triglycerides 187 mg/dl (<150); Uric Acid 5.6 mg/dL (2.5-8.0)
[2019-10-01 11:39] LABS: Basophils # (Auto) 0.03 K/mcL (0.00-0.30); Basophils % (Auto) 0.3 % (0.0-2.0); Eosinophils # (Auto) 0.05 K/mcL (0.00-0.70); Eosinophils % (Auto) 0.5 % (0.0-7.0); Granulocytes % (Auto) 84.1 % (38.0-78.0); Hematocrit 26.5 % (34.1-44.9); Lymphocytes # (Auto) 0.85 K/mcL (1.50-4.80); Lymphocytes % (Auto) 8.7 % (15.5-49.0); Mean Cell Volume 81.8 fL (80.0-100.0); Mean Corpuscular HGB Conc 30.2 g/dL (31.0-36.0); Mean Platelet Volume 9.2 fL (7.4-10.4); Monocytes # (Auto) 0.63 K/mcL (0.10-0.90); Monocytes % (Auto) 6.4 % (1.0-12.0); Platelet Count 284 K/mcL (140-440); RBC 3.24 M/mcL (3.59-5.38); WBC 9.8 K/mcL (4.50-11.00)
[2019-10-01] MEDS ORDERED: LORazepam 2 MG/ML VIAL ONE (12:58)
[2019-10-01] MEDS: LORazepam 2 MG/ML VIAL IV PRN ×2 (13:32→22:22)
[2019-10-01] MEDS: LEVOFLOXACIN 750 MG TABLET PO SCH (15:36)
[2019-10-01] MEDS: POTASSIUM CHLORIDE 20 MEQ TABLET PO PRN (15:36)
[2019-10-01] MEDS: MELATONIN 3 MG TABLET PO SCH (19:36)
[2019-10-01] MEDS: NORTRIPTYLINE 25 MG CAPSULE PO SCH (19:36)
[2019-10-01] MEDS: SIMVASTATIN 10 MG TABLET PO SCH (19:36)
[2019-10-01] MEDS: ALPRAZolam 0.25 MG TABLET PO PRN (20:47)
[2019-10-01] MEDS: IPRATROPIUM/ALBUTEROL 3 ML AMPUL.NEB NEB PRN (22:27)
[2019-10-02] MEDS: 0.9 % SODIUM CHLORIDE 10 ML SYRINGE IV SCH ×3 (05:54→20:30)
[2019-10-02] MEDS: INSULIN LISPRO 1 UNIT/0.01 ML UNIT SQ SCH ×4 (08:05→20:29)
[2019-10-02] MEDS: LEVOTHYROXINE 25 MCG TABLET PO SCH (08:05)
[2019-10-02] MEDS: CARBIDOPA/LEVODOPA 25/100 TABLET PO SCH ×3 (09:45→20:14)
[2019-10-02] MEDS: DOCUSATE SODIUM 100 MG CAPSULE PO SCH ×2 (09:45→20:14)
[2019-10-02] MEDS: AMANTADINE HCL 100 MG CAPSULE PO SCH ×2 (09:45→20:14)
[2019-10-02] MEDS: ENOXAPARIN 30 MG/0.3 ML SYRINGE SQ SCH (09:45)
[2019-10-02] MEDS: LEVOFLOXACIN 750 MG TABLET PO SCH (09:45)
[2019-10-02] MEDS: HYDROcodone/APAP 5/325MG TABLET PO PRN (09:47)
[2019-10-02 10:05] LABS: Basophils # (Auto) 0.03 K/mcL (0.00-0.30); Basophils % (Auto) 0.3 % (0.0-2.0); Eosinophils # (Auto) 0.07 K/mcL (0.00-0.70); Eosinophils % (Auto) 0.7 % (0.0-7.0); Granulocytes % (Auto) 73.8 % (38.0-78.0); Hematocrit 28.1 % (34.1-44.9); Hemoglobin 8.4 g/dL (11.2-15.7); Lymphocytes # (Auto) 1.35 K/mcL (1.50-4.80); Lymphocytes % (Auto) 13.1 % (15.5-49.0); Mean Corpuscular HGB Conc 29.9 g/dL (31.0-36.0); Monocytes # (Auto) 1.25 K/mcL (0.10-0.90); Monocytes % (Auto) 12.1 % (1.0-12.0); Platelet Count 319 K/mcL (140-440); RBC 3.47 M/mcL (3.59-5.38); WBC 10.3 K/mcL (4.50-11.00)
[2019-10-02] MEDS ORDERED: ASPIRIN 325 MG ENTERIC COATED TABLET PO PRN (10:19)
[2019-10-02] MEDS ORDERED: NAPROXEN 250 MG TABLET PO PRN (10:19)
[2019-10-02] MEDS ORDERED: MIRALAX PO PRN (10:19)
--- NOTE | 2019-10-02 10:20 | Internal Med Progress Note ---
Medical - PN: Subj Patient information: Note initiated : 10/02/19 at 10:17 am Service Date, if different from initiated Date: [] Patient: Radha Ruiz a 64 y/o F admitted on 09/29/19 for "fever, low back pain and can't urinate". Chief Complaint: [] Interval history: Ms. Ruiz is a 64 year old F Patient presents the ED complaining of fever and chills for several days as well as low back pain in the middle. She is complained of dysuria and frequency. In the ED she is found to have leukocytosis tachypneic and tachycardic as well as acute kidney injury. She had elevated lactate levels. Her blood pressure stable at the moment. Urinalysis concerning for urinary tract infection. Past urine cultures have grown Citrobacter. She has a history of iron deficiency anemia has been on iron in the past and per notes she has become anemic quickly off of iron. Of note she is anemic here in the ED. she states she is taking iron. Patient denies diarrhea. Patient denies feeling weaker than usual. No gross bleeding per ED. 09/30 Feeling better today. Sitting up eating breakfast. Occasional cough nonproductive does cause a bit of a headache sometimes, otherwise no complaints. Good urine output and renal function improved, lactic acidosis resolved. 10/01-patient doing remarkably better. White count downtrending. Stable hemodynamics. No overnight events except for increasing choreoathetotic dyskinetic movements responded well to amantadine. E. coli on urine culture. On antibiotic coverage. De-escalate based on sensitivities. Transfer out of ICU. Stable hemodynamics. 10/02-patient clinically improving. White count continues to downtrend. He is stable hemodynamics. Case discussed with neurology Dr. Patel at [place]. Recommends lowering levodopa carbidopa for excessive choreoathetotic movements. Continuing amantadine. No overnight fever chills. Discussed with and case management the need for transfer to rehab center in light of significant deconditioning. agreeable. - Constitutional Vitals: Vital Signs Temp Pulse Resp BP Pulse Ox 98.8 F 105 H 20 165/93 99 10/02/19 00:09 10/02/19 10:01 10/02/19 10:01 10/02/19 10:01 10/02/19 10:01 Period Temp Pulse Resp BP Sys/Cespedes Pulse Ox Last 24 Hr 97.1 F-98.8 F 38-141 13-28 100-165/51-100 87-100 Intake and Output 10/01/19 10/02/19 10/02/19 21:59 05:59 13:59 Intake Total 1203 240 Output Total 1230 500 320 Balance -27 -260 -320 Weight 175 lb 11.2 oz Intake & Output: Intake & Output 10/01/19 10/02/19 10/02/19 21:59 05:59 13:59 Intake Total 1203 240 Output Total 1230 500 320 Balance -27 -260 -320 Weight 175 lb 11.2 oz Intake: IV 3 Zosyn 3.375 gm In Dextrose 5% 3 in Water 50 ml @ 100 mls/hr IV Q6H [facility] Rx#:[id number] Oral 1200 240 Output: Urine Catheter Amount 1230 500 320 Other: Meal Dinner Percent of Meal Consumed 50% Feeding Ability Assist with Tray Set Up Urine Appearance Clear Clear Clear Fem Cath Clear Clear Urine Color Dark Yellow Dark Yellow Dark Yellow Fem Cath Dark Yellow Dark Yellow Urine Odor Normal Normal Stool Size Small Stool Color Brown Stool Consistency Formed # of times incontinent of 1 Bowels General appearance: no acute distress Exam: Alert but intermittently confused Nonlabored breathing Coles draining clear urine No remarkable telemetry events Medical - PN: Obj Da - Labs CBC & Chem 7: 10/02/19 08:24 10/01/19 09:16 Labs: Abnormal Lab Results 10/02/19 10/01/19 10/01/19 08:24 10:24 09:16 WBC RBC 3.47 L 3.24 L Hgb 8.4 L 8.0 L Hct 28.1 L 26.5 L POC Hct MCH 24.2 L 24.7 L MCHC 29.9 L 30.2 L RDW 17.0 H 17.0 H Gran % 84.1 H Lymph % (Auto) 13.1 L 8.7 L [place] % (Auto) 12.1 H Gran # 8.24 H Lymph # (Auto) 1.35 L 0.85 L [place] # (Auto) 1.25 H VBG Lactic Acid POC Sodium Sodium 132 L Potassium POC Chloride Chloride Carbon Dioxide Anion Gap POC BUN BUN 32 H Creatinine 1.4 H POC Creatinine Glucose 59 L POC Glucose Calcium POC WB Ioniz Calcium GGT 126 H AST Alkaline Phosphatase 278 H Lactate Dehydrogenase 282 H Albumin 3.1 L Triglycerides 187 H Urine Protein Urine Ketones Urine Occult Blood Ur Leukocyte Esterase Urine WBC Urine Bacteria Hyaline Casts 09/30/19 09/30/19 09/30/19 16:03 05:00 05:00 WBC 14.3 H RBC 3.44 L Hgb 8.2 L 8.5 L Hct 26.6 L 27.6 L POC Hct MCH 24.7 L MCHC 30.8 L RDW 17.0 H Gran % 87.6 H Lymph % (Auto) 5.6 L [place] % (Auto) Gran # 12.56 H Lymph # (Auto) 0.80 L [place] # (Auto) 0.95 H VBG Lactic Acid POC Sodium Sodium Potassium 3.2 L POC Chloride Chloride 94 L Carbon Dioxide Anion Gap POC BUN BUN 40 H Creatinine 1.6 H POC Creatinine Glucose 135 H POC Glucose Calcium 8.5 L POC WB Ioniz Calcium GGT 70 H AST Alkaline Phosphatase 162 H Lactate Dehydrogenase Albumin Triglycerides 151 H Urine Protein Urine Ketones Urine Occult Blood Ur Leukocyte Esterase Urine WBC Urine Bacteria Hyaline Casts 09/29/19 09/29/19 09/29/19 21:15 18:57 18:02 WBC RBC Hgb Hct POC Hct 25.0 L MCH MCHC RDW Gran % Lymph % (Auto) [place] % (Auto) Gran # Lymph # (Auto) [place] # (Auto) VBG Lactic Acid 2.3 H POC Sodium 131 L Sodium Potassium POC Chloride 95 L Chloride Carbon Dioxide Anion Gap POC BUN 43 H BUN Creatinine POC Creatinine 2.1 H Glucose POC Glucose 134 H Calcium POC WB Ioniz Calcium 1.01 L GGT AST Alkaline Phosphatase Lactate Dehydrogenase Albumin Triglycerides Urine Protein 30 A Urine Ketones 5/tr A Urine Occult Blood 0.03 A Ur Leukocyte Esterase 250 A Urine WBC 35 H Urine Bacteria Many A Hyaline Casts 26 H 09/29/19 09/29/19 09/29/19 18:02 18:02 18:02 WBC 19.7 H RBC Hgb 9.1 L Hct 29.9 L POC Hct MCH 24.6 L MCHC 30.4 L RDW 16.8 H Gran % 88.1 H Lymph % (Auto) 4.2 L [place] % (Auto) Gran # 17.31 H Lymph # (Auto) 0.83 L [place] # (Auto) 1.41 H VBG Lactic Acid 4.7 H* POC Sodium Sodium 129 L Potassium POC Chloride Chloride 88 L Carbon Dioxide 19 L Anion Gap 22.0 H POC BUN BUN 46 H Creatinine 2.1 H POC Creatinine Glucose 156 H POC Glucose Calcium POC WB Ioniz Calcium GGT AST 45 H Alkaline Phosphatase 162 H Lactate Dehydrogenase Albumin Triglycerides Urine Protein Urine Ketones Urine Occult Blood Ur Leukocyte Esterase Urine WBC Urine Bacteria Hyaline Casts Meds: Medications Acetaminophen (Tylenol) 650 mg PO Q6HP PRN PRN Reason: PAIN/FEVER > 101 Hydrocodone Bitart/Acetaminophen ([place] 5/325mg) 1 tab PO Q4HP PRN PRN Reason: PAIN LEVEL 3-6 Last Admin: 10/02/19 09:47 Dose: 1 tab Documented by: Albuterol/Ipratropium (Duoneb) 3 ml NEB Q4HP PRN PRN Reason: Shortness Of Breath Last Admin: 10/01/19 22:27 Dose: 3 ml Documented by: Alprazolam (Xanax) 0.25 mg PO HSP PRN PRN Reason: Agitation Last Admin: 10/01/19 20:47 Dose: 0.25 mg Documented by: Amantadine HCl (Amantadine) 100 mg PO BID [facility] Last Admin: 10/02/19 09:45 Dose: 100 mg Documented by: Carbidopa/Levodopa (Sinemet 25/100) 3 tab PO TID [facility] Last Admin: 10/02/19 09:45 Dose: 3 tab Documented by: Dextrose (Dextrose 50%) 0 ml IV UD PRN PRN Reason: Hypoglycemia Diagnostic Test (Pha) (Accu-Chek) 1 each FS ACHS [facility] Last Admin: 10/02/19 08:05 Dose: 1 each Documented by: Docusate Sodium (Colace) 100 mg PO BID [facility] Last Admin: 10/02/19 09:45 Dose: 100 mg Documented by: Enoxaparin Sodium (Lovenox) 30 mg SQ DAILY [facility] Last Admin: 10/02/19 09:45 Dose: 30 mg Documented by: Glucose (Insta-Glucose) 15 gm PO PRN PRN PRN Reason: Hypoglycemia Potassium Chloride 40 meq/ (Dextrose) 520 mls @ 130 mls/hr IV UD PRN PRN Reason: Potassium < 3 Magnesium Sulfate (Magnesium Sulfate) 2 gm in 50 mls @ 50 mls/hr IV UD PRN PRN Reason: Magnesium </= 1.6 Last Infusion: 09/30/19 09:06 Dose: Infused Documented by: Norepinephrine Bitartrate 16 (mg/ Sodium Chloride) 250 mls @ 9.375 mls/hr IV Q24HP PRN; Protocol PRN Reason: TO KEEP MAP >65 Insulin Human Lispro (Humalog) 0 unit SQ ACHS [facility]; Protocol Last Admin: 10/02/19 08:05 Dose: Not Given Documented by: Lactulose (Cephulac) 20 gm PO DAILYP PRN PRN Reason: Constipation Levofloxacin (Levaquin) 750 mg PO DAILY [facility] Stop: 10/04/19 09:01 Last Admin: 10/02/19 09:45 Dose: 750 mg Documented by: Levothyroxine Sodium (Synthroid) 25 mcg PO ACB [facility] Last Admin: 10/02/19 08:05 Dose: 25 mcg Documented by: Lorazepam (Ativan) 0.5 mg IV Q4HP PRN PRN Reason: ANXIETY/SEDATION Last Admin: 10/01/19 22:22 Dose: 0.5 mg Documented by: Melatonin (Melatonin 3mg Tablet) 3 mg PO QHS [facility] Last Admin: 10/01/19 19:36 Dose: 3 mg Documented by: Nortriptyline HCl (Pamelor) 25 mg PO [facility] Last Admin: 10/01/19 19:36 Dose: 25 mg Documented by: Ondansetron HCl (Zofran) 4 mg IV Q4HP PRN PRN Reason: Nausea And Vomiting Polyethylene Glycol (Miralax) 17 gm PO DAILYP PRN PRN Reason: Constipation Last Admin: 10/01/19 09:10 Dose: 17 gm Documented by: Potassium Chloride (Kdur) 40 meq PO UD PRN PRN Reason: Potssium is 3-3.5 Last Admin: 10/01/19 15:36 Dose: 40 meq Documented by: Potassium Chloride (Kdur) 40 meq PO UD PRN PRN Reason: Potassium < 3 Simvastatin (Zocor) 10 mg PO [facility] Last Admin: 10/01/19 19:36 Dose: 10 mg Documented by: Sodium Chloride (Saline Flush) 10 ml IV Q8 [facility] Last Admin: 10/02/19 05:54 Dose: 10 ml Documented by: Medical - PN: A/P - Time Spent With Patient Total time spent is greater than 50% in coordination of care (as documented) at patient's floor/unit and/or counseling patient: 25 - 35 minutes - Narrative A/P Narrative: * Complicated E. coli UTI/acute pyelonephritis continue antibiotic coverage * Severe sepsis secondary to above clinically improving. On antibiotic coverage. Lactate normalized. White count downtrending. Stable hemodynamics. * Acute renal failure secondary to sepsis endorgan dysfunction. Creatinine continues to downtrend * Hyponatremia secondary to thiazide, 132 today * Severe dyskinetic movements including choreoathetosis-Per neurology levodopa carbidopa dose reduced. Continue amantadine * Parkinson disease on levodopa carbidopa * DM type II continue sliding-scale insulin/CC diet * Hypertension-restart home meds * Anxiety disorder on as needed Xanax * Hypothyroidism on thyroxine * Full code Plan * Continue antibiotic coverage * Restart home medications * Continue monitoring renal function * Continue PT OT nutrition support * Discharge planning likely SNF in 24 to 48 hours
[2019-10-02] MEDS: metFORMIN 500 MG TABLET PO SCH ×2 (16:25→17:41)
[2019-10-02] MEDS: POLYETHYLENE GLYCOL 3350 17 GM PACKET PO PRN (17:47)
[2019-10-02] MEDS: NORTRIPTYLINE 25 MG CAPSULE PO SCH (20:14)
[2019-10-02] MEDS: HYDROCHLOROTHIAZIDE 12.5 MG CAPSULE PO SCH (20:14)
[2019-10-02] MEDS: SIMVASTATIN 10 MG TABLET PO SCH (20:15)
[2019-10-02] MEDS: MELATONIN 3 MG TABLET PO SCH (20:15)
[2019-10-02] MEDS: POTASSIUM CHLORIDE 20 MEQ TABLET PO PRN (20:15)
[2019-10-02] MEDS: LOSARTAN 50 MG TABLET PO SCH (20:15)
[2019-10-02] MEDS ORDERED: LOSARTAN/HCTZ 50/12.5 TABLET PO SCH (21:00)
[2019-10-02] MEDS: LORazepam 2 MG/ML VIAL IV PRN (23:23)
[2019-10-03] MEDS: 0.9 % SODIUM CHLORIDE 10 ML SYRINGE IV SCH ×3 (05:32→21:28)
[2019-10-03] MEDS: LEVOTHYROXINE 25 MCG TABLET PO SCH (07:31)
[2019-10-03 09:04] LABS: Basophils # (Auto) 0.02 K/mcL (0.00-0.30); Basophils % (Auto) 0.3 % (0.0-2.0); Eosinophils # (Auto) 0.18 K/mcL (0.00-0.70); Eosinophils % (Auto) 2.6 % (0.0-7.0); Granulocytes % (Auto) 62.9 % (38.0-78.0); Hematocrit 29.1 % (34.1-44.9); Hemoglobin 8.7 g/dL (11.2-15.7); Lymphocytes # (Auto) 1.48 K/mcL (1.50-4.80); Lymphocytes % (Auto) 21.5 % (15.5-49.0); Mean Cell Volume 80.4 fL (80.0-100.0); Mean Corpuscular HGB Conc 29.9 g/dL (31.0-36.0); Mean Platelet Volume 9.1 fL (7.4-10.4); Monocytes # (Auto) 0.74 K/mcL (0.10-0.90); Monocytes % (Auto) 10.7 % (1.0-12.0); Platelet Count 309 K/mcL (140-440); RBC 3.62 M/mcL (3.59-5.38); WBC 6.9 K/mcL (4.50-11.00)
[2019-10-03] MEDS: INSULIN LISPRO 1 UNIT/0.01 ML UNIT SQ SCH ×4 (09:05→21:24)
[2019-10-03 09:06] LABS: ALT/SGPT < 5 U/l (0-40); AST/SGOT 19 U/l (0-37); Albumin 3.1 gm/dL (3.2-5.2); Alkaline Phosphatase 371 U/L (39-117); Bilirubin,Direct < 0.2 mg/dL (0.0-0.3); Bilirubin,Total 0.3 mg/dL (0.0-1.0); Blood Urea Nitrogen 18 mg/dl (8-23); Calcium 9.3 mg/dl (8.6-10.4); Carbon Dioxide 25 mmol/L (22-30); Chloride 100 mmol/L (96-108); Globulin 3.2 gm/dL (2.2-3.7); Glomerular Filtration Rate 77; Glucose 124 mg/dL (70-105); Lactate Dehydrogenase 206 U/L (94-250); Phosphorous 3.1 mg/dL (2.7-4.5); Triglycerides 179 mg/dl (<150); Uric Acid 4.8 mg/dL (2.5-8.0)
[2019-10-03] MEDS: AMANTADINE HCL 100 MG CAPSULE PO SCH ×2 (09:06→21:28)
[2019-10-03] MEDS: metFORMIN 500 MG TABLET PO SCH ×3 (09:06→17:31)
[2019-10-03] MEDS: CARBIDOPA/LEVODOPA 25/100 TABLET PO SCH ×3 (09:06→21:26)
[2019-10-03] MEDS: LOSARTAN 50 MG TABLET PO SCH ×2 (09:06→21:28)
[2019-10-03] MEDS: HYDROCHLOROTHIAZIDE 12.5 MG CAPSULE PO SCH ×2 (09:06→21:26)
[2019-10-03] MEDS: LEVOFLOXACIN 750 MG TABLET PO SCH (09:06)
[2019-10-03] MEDS: ENOXAPARIN 30 MG/0.3 ML SYRINGE SQ SCH (09:06)
[2019-10-03] MEDS: DOCUSATE SODIUM 100 MG CAPSULE PO SCH ×2 (09:07→21:25)
[2019-10-03] MEDS: MAGNESIUM SULFATE 2 GM/50 ML BAG IV PRN (09:55)
--- NOTE | 2019-10-03 10:57 | Internal Med Progress Note ---
Medical - PN: Subj Patient information: Note initiated : 10/03/19 at 10:50 am Service Date, if different from initiated Date: [] Patient: Radha Ruiz a 64 y/o F admitted on 09/29/19 for "fever, low back pain and can't urinate". Chief Complaint: [] Interval history: Ms. Ruiz is a 64 year old F Patient presents the ED complaining of fever and chills for several days as well as low back pain in the middle. She is complained of dysuria and frequency. In the ED she is found to have leukocytosis tachypneic and tachycardic as well as acute kidney injury. She had elevated lactate levels. Her blood pressure stable at the moment. Urinalysis concerning for urinary tract infection. Past urine cultures have grown Citrobacter. She has a history of iron deficiency anemia has been on iron in the past and per notes she has become anemic quickly off of iron. Of note she is anemic here in the ED. she states she is taking iron. Patient denies diarrhea. Patient denies feeling weaker than usual. No gross bleeding per ED. 09/30 Feeling better today. Sitting up eating breakfast. Occasional cough nonproductive does cause a bit of a headache sometimes, otherwise no complaints. Good urine output and renal function improved, lactic acidosis resolved. 10/01-patient doing remarkably better. White count downtrending. Stable hemodynamics. No overnight events except for increasing choreoathetotic dyskinetic movements responded well to amantadine. E. coli on urine culture. On antibiotic coverage. De-escalate based on sensitivities. Transfer out of ICU. Stable hemodynamics. 10/02-patient clinically improving. White count continues to downtrend. He is stable hemodynamics. Case discussed with neurology Dr. Patel at [place]. Recommends lowering levodopa carbidopa for excessive choreoathetotic movements. Continuing amantadine. No overnight fever chills. Discussed with and case management the need for transfer to rehab center in light of significant deconditioning. agreeable. 10/03-patient doing well. Out of bed to chair. Feeling a lot better. Stable hemodynamics and labs. No overnight events. Much improved choreoathetotic movement after lowering dose of levodopa carbidopa. Patient willing for short- term rehab. Anticipate discharge in 24 hours to SNF. Continue antibiotic coverage. De-escalate in 24 hours. - Constitutional Vitals: Vital Signs Temp Pulse Resp BP Pulse Ox 97 F 93 H 20 141/93 92 10/03/19 10:00 10/03/19 07:00 10/03/19 10:00 10/03/19 10:00 10/03/19 10:00 Period Temp Pulse Resp BP Sys/Cespedes Pulse Ox Last 24 Hr 97 F-98.1 F 87-103 15-28 93-165/67-104 91-100 Intake and Output 10/02/19 10/03/19 10/03/19 21:59 05:59 13:59 Intake Total 750 360 Output Total 560 660 Balance 190 -660 360 Weight 174 lb 12.8 oz Intake & Output: Intake & Output 10/02/19 10/03/19 10/03/19 21:59 05:59 13:59 Intake Total 750 360 Output Total 560 660 Balance 190 -660 360 Weight 174 lb 12.8 oz Intake: Oral 750 360 Output: Urine Catheter Amount 560 660 Other: Meal Dinner Percent of Meal Consumed 75% Urine Appearance Clear Clear Urine Color Dark Yellow Bright Yellow Stool Size Moderate Stool Color Brown Stool Consistency Liquid General appearance: no acute distress Exam: Alert oriented Sitting in chair Nonlabored breathing No lymphedema No telemetry events Medical - PN: Obj Da - Labs CBC & Chem 7: 10/03/19 04:55 10/03/19 04:55 Labs: Abnormal Lab Results 10/03/19 10/03/19 10/02/19 04:55 04:55 08:24 RBC 3.47 L Hgb 8.7 L 8.4 L Hct 29.1 L 28.1 L MCH 24.0 L 24.2 L MCHC 29.9 L 29.9 L RDW 17.0 H 17.0 H Gran % Lymph % (Auto) 13.1 L [place] % (Auto) 12.1 H Gran # Lymph # (Auto) 1.48 L 1.35 L [place] # (Auto) 1.25 H Sodium BUN Creatinine Glucose 124 H Magnesium 1.5 L GGT 197 H Alkaline Phosphatase 371 H Lactate Dehydrogenase Albumin 3.1 L Triglycerides 179 H 10/01/19 10/01/19 09/30/19 10:24 09:16 16:03 RBC 3.24 L Hgb 8.0 L 8.2 L Hct 26.5 L 26.6 L MCH 24.7 L MCHC 30.2 L RDW 17.0 H Gran % 84.1 H Lymph % (Auto) 8.7 L [place] % (Auto) Gran # 8.24 H Lymph # (Auto) 0.85 L [place] # (Auto) Sodium 132 L BUN 32 H Creatinine 1.4 H Glucose 59 L Magnesium GGT 126 H Alkaline Phosphatase 278 H Lactate Dehydrogenase 282 H Albumin 3.1 L Triglycerides 187 H Meds: Medications Acetaminophen (Tylenol) 650 mg PO Q6HP PRN PRN Reason: PAIN/FEVER > 101 Hydrocodone Bitart/Acetaminophen (Thorn[place] 5/325mg) 1 tab PO Q4HP PRN PRN Reason: PAIN LEVEL 3-6 Last Admin: 10/02/19 09:47 Dose: 1 tab Documented by: Albuterol/Ipratropium (Duoneb) 3 ml NEB Q4HP PRN PRN Reason: Shortness Of Breath Last Admin: 10/01/19 22:27 Dose: 3 ml Documented by: Alprazolam (Xanax) 0.25 mg PO HSP PRN PRN Reason: Agitation Last Admin: 10/01/19 20:47 Dose: 0.25 mg Documented by: Amantadine HCl (Amantadine) 100 mg PO BID [facility] Last Admin: 10/03/19 09:06 Dose: 100 mg Documented by: Aspirin (Ecotrin) 650 mg PO DAILYP PRN PRN Reason: Pain Carbidopa/Levodopa (Sinemet 25/100) 3 tab PO TID [facility] Last Admin: 10/03/19 09:06 Dose: 3 tab Documented by: Dextrose (Dextrose 50%) 0 ml IV UD PRN PRN Reason: Hypoglycemia Diagnostic Test (Pha) (Accu-Chek) 1 each FS ACHS [facility] Last Admin: 10/03/19 07:31 Dose: 1 each Documented by: Docusate Sodium (Colace) 100 mg PO BID [facility] Last Admin: 10/03/19 09:07 Dose: Not Given Documented by: Enoxaparin Sodium (Lovenox) 30 mg SQ DAILY [facility] Last Admin: 10/03/19 09:06 Dose: 30 mg Documented by: Glucose (Insta-Glucose) 15 gm PO PRN PRN PRN Reason: Hypoglycemia Hydrochlorothiazide (Oretic) 12.5 mg PO BID [facility] Last Admin: 10/03/19 09:06 Dose: 12.5 mg Documented by: Potassium Chloride 40 meq/ (Dextrose) 520 mls @ 130 mls/hr IV UD PRN PRN Reason: Potassium < 3 Magnesium Sulfate (Magnesium Sulfate) 2 gm in 50 mls @ 50 mls/hr IV UD PRN PRN Reason: Magnesium </= 1.6 Last Infusion: 09/30/19 09:06 Dose: Infused Documented by: Norepinephrine Bitartrate 16 (mg/ Sodium Chloride) 250 mls @ 9.375 mls/hr IV Q24HP PRN; Protocol PRN Reason: TO KEEP MAP >65 Insulin Human Lispro (Humalog) 0 unit SQ ACHS [facility]; Protocol Last Admin: 10/03/19 09:05 Dose: 2 unit Documented by: Lactulose (Cephulac) 20 gm PO DAILYP PRN PRN Reason: Constipation Last Admin: 10/02/19 17:47 Dose: 20 gm Documented by: Levofloxacin (Levaquin) 750 mg PO DAILY [facility] Stop: 10/04/19 09:01 Last Admin: 10/03/19 09:06 Dose: 750 mg Documented by: Levothyroxine Sodium (Synthroid) 25 mcg PO ACB [facility] Last Admin: 10/03/19 07:31 Dose: 25 mcg Documented by: Lorazepam (Ativan) 0.5 mg IV Q4HP PRN PRN Reason: ANXIETY/SEDATION Last Admin: 10/02/19 23:23 Dose: 0.5 mg Documented by: Losartan Potassium (Cozaar) 50 mg PO BID [facility] Last Admin: 10/03/19 09:06 Dose: 50 mg Documented by: Melatonin (Melatonin 3mg Tablet) 3 mg PO QHS [facility] Last Admin: 10/02/19 20:15 Dose: 3 mg Documented by: Metformin HCl (Glucophage) 1,500 mg PO TIDCC [facility] Last Admin: 10/03/19 09:06 Dose: 1,500 mg Documented by: Naproxen (Naprosyn) 250 mg PO BIDP PRN PRN Reason: Pain Nortriptyline HCl (Pamelor) 25 mg PO HS [facility] Last Admin: 10/02/19 20:14 Dose: 25 mg Documented by: Ondansetron HCl (Zofran) 4 mg IV Q4HP PRN PRN Reason: Nausea And Vomiting Polyethylene Glycol (Miralax) 17 gm PO DAILYP PRN PRN Reason: Constipation Last Admin: 10/02/19 17:47 Dose: 17 gm Documented by: Potassium Chloride (Kdur) 40 meq PO UD PRN PRN Reason: Potssium is 3-3.5 Last Admin: 10/02/19 20:15 Dose: 40 meq Documented by: Potassium Chloride (Kdur) 40 meq PO UD PRN PRN Reason: Potassium < 3 Simvastatin (Zocor) 10 mg PO HS [facility] Last Admin: 10/02/19 20:15 Dose: 10 mg Documented by: Sodium Chloride (Saline Flush) 10 ml IV Q8 [facility] Last Admin: 10/03/19 05:32 Dose: 10 ml Documented by: Medical - PN: A/P - Time Spent With Patient Total time spent is greater than 50% in coordination of care (as documented) at patient's floor/unit and/or counseling patient: 25 - 35 minutes - Narrative A/P Narrative: * Complicated E. coli UTI/acute pyelonephritis -de-escalate to Levaquin * Severe sepsis secondary to above clinically resolved on antibiotic coverage. White count normalized * Acute renal failure secondary to sepsis endorgan dysfunction. Creatinine down from 2.1-0.8 * Hyponatremia secondary to thiazide, normalized at 138 * Severe dyskinetic movements including choreoathetosis-much improved following dose reduction as per neurology recommendation. Continue amantadine * Parkinson disease on levodopa carbidopa * DM type II continue sliding-scale insulin/CC diet * Hypertension-continue home meds * Anxiety disorder on as needed Xanax * Hypothyroidism on thyroxine * Full code Plan * De-escalate antibiotics to Levaquin * Continue pre-existing medical issue management on home medications * Continue PT OT nutrition per dietitian * Transfer to medical floor * Discharge SNF in 24 hr
[2019-10-03] MEDS ORDERED: ACETAMINOPHEN 325 MG TABLET PO PRN (11:11)
[2019-10-03] MEDS ORDERED: DEXTROSE 50% 50 ML VIAL IV PRN (11:11)
[2019-10-03] MEDS ORDERED: ASPIRIN 325 MG ENTERIC COATED TABLET PO PRN (11:11)
[2019-10-03] MEDS ORDERED: POTASSIUM CHLORIDE 20 MEQ TABLET PO PRN ×2 (11:11)
[2019-10-03] MEDS ORDERED: IPRATROPIUM/ALBUTEROL 3 ML AMPUL.NEB NEB PRN (11:11)
[2019-10-03] MEDS ORDERED: LACTULOSE 20 GM/30 ML ORAL.SOL PO PRN (11:11)
[2019-10-03] MEDS ORDERED: POLYETHYLENE GLYCOL 3350 17 GM PACKET PO PRN (11:11)
[2019-10-03] MEDS ORDERED: DEXTROSE 31 GM ORAL.SUSP PO PRN (11:11)
[2019-10-03] MEDS ORDERED: LORazepam 2 MG/ML VIAL IV PRN (11:11)
[2019-10-03] MEDS ORDERED: ONDANSETRON 4 MG/2 ML VIAL IV PRN (11:11)
[2019-10-03] MEDS ORDERED: MAGNESIUM SULFATE 2 GM/50 ML BAG IV PRN (11:11)
[2019-10-03] MEDS ORDERED: HYDROcodone/APAP 5/325MG TABLET PO PRN (11:11)
[2019-10-03] MEDS ORDERED: POTASSIUM CHLORIDE 40 MEQ in DEXTROSE 5% IN WATER 500 ML IV PRN (11:11)
[2019-10-03] MEDS ORDERED: NAPROXEN 250 MG TABLET PO PRN (11:11)
[2019-10-03] MEDS ORDERED: SIMVASTATIN 10 MG TABLET PO SCH (21:00)
[2019-10-03] MEDS ORDERED: NORTRIPTYLINE 25 MG CAPSULE PO SCH (21:00)
[2019-10-03] MEDS ORDERED: ALPRAZolam 0.25 MG TABLET PO PRN (21:00)
[2019-10-03] MEDS ORDERED: MELATONIN 3 MG TABLET PO SCH (21:00)
[2019-10-04] MEDS: 0.9 % SODIUM CHLORIDE 10 ML SYRINGE IV SCH (05:45)
[2019-10-04] MEDS ORDERED: LEVOTHYROXINE 25 MCG TABLET PO SCH (07:30)
[2019-10-04] MEDS: INSULIN LISPRO 1 UNIT/0.01 ML UNIT SQ SCH ×2 (07:35→11:31)
[2019-10-04] MEDS: metFORMIN 500 MG TABLET PO SCH ×2 (07:36→11:30)
[2019-10-04 08:10] LABS: Basophils # (Auto) 0.03 K/mcL (0.00-0.30); Basophils % (Auto) 0.5 % (0.0-2.0); Eosinophils % (Auto) 5.2 % (0.0-7.0); Granulocytes % (Auto) 54.6 % (38.0-78.0); Hemoglobin 8.7 g/dL (11.2-15.7); Lymphocytes # (Auto) 1.66 K/mcL (1.50-4.80); Lymphocytes % (Auto) 28.8 % (15.5-49.0); Mean Cell Volume 81.5 fL (80.0-100.0); Mean Platelet Volume 8.9 fL (7.4-10.4); Monocytes # (Auto) 0.63 K/mcL (0.10-0.90); Monocytes % (Auto) 10.9 % (1.0-12.0); Platelet Count 335 K/mcL (140-440); RBC 3.56 M/mcL (3.59-5.38); WBC 5.8 K/mcL (4.50-11.00)
[2019-10-04 08:12] LABS: ALT/SGPT 6 U/l (0-40); AST/SGOT 18 U/l (0-37); Albumin 2.9 gm/dL (3.2-5.2); Albumin/Globulin Ratio 0.8 (1.0-2.3); Alkaline Phosphatase 301 U/L (39-117); Bilirubin,Direct < 0.2 mg/dL (0.0-0.3); Bilirubin,Total 0.4 mg/dL (0.0-1.0); Blood Urea Nitrogen 18 mg/dl (8-23); Calcium 9.3 mg/dl (8.6-10.4); Carbon Dioxide 25 mmol/L (22-30); Chloride 98 mmol/L (96-108); Globulin 3.6 gm/dL (2.2-3.7); Glomerular Filtration Rate 67; Glucose 123 mg/dL (70-105); Lactate Dehydrogenase 197 U/L (94-250); Phosphorous 3.8 mg/dL (2.7-4.5); Triglycerides 184 mg/dl (<150); Uric Acid 4.4 mg/dL (2.5-8.0)
[2019-10-04] MEDS ORDERED: ENOXAPARIN 30 MG/0.3 ML SYRINGE SQ SCH (09:00)
[2019-10-04] MEDS ORDERED: LEVOFLOXACIN 750 MG TABLET PO SCH (09:00)
[2019-10-04] MEDS: DOCUSATE SODIUM 100 MG CAPSULE PO SCH (09:20)
[2019-10-04] MEDS: CARBIDOPA/LEVODOPA 25/100 TABLET PO SCH (09:20)
[2019-10-04] MEDS: LOSARTAN 50 MG TABLET PO SCH (09:21)
[2019-10-04] MEDS: HYDROCHLOROTHIAZIDE 12.5 MG CAPSULE PO SCH (09:21)
[2019-10-04] MEDS: AMANTADINE HCL 100 MG CAPSULE PO SCH (09:29)
--- NOTE | 2019-10-04 10:50 | Discharge Summary ---
Medical - DS: Prov Patient information: Note initiated : 10/04/19 at 10:48 am Service Date, if different from initiated Date: [] Patient: Radha Ruiz 64 y/o F admitted on 09/29/19 for "fever, low back pain and can't urinate". Chief Complaint: [] Date of admission: 09/29/19 21:08 Discharge date: 10/04/19 Primary care physician: Aga Fernández Consults: 09/29/19 Consult to Physician [CONS] Stat Comment: Consulting Provider: Galen Stiles Reason For Exam: Physician to Consult 10/02/19 09:37 Consult to Physician [CONS] Routine Comment: Consulting Provider: Santo Robertson Reason For Exam: Physician to Consult Medical - DS: Meds - Discharge Medications Prescriptions: HYDROcodone/APAP 5/325MG [Mad[place] 5-325Mg] 1 tab PO Q4HP PRN #14 tab PRN Reason: Pain Level 3-6 Prescription Printed Carbidopa/Levodopa 25/100 [Sinemet 25/100] 3 tab PO TID #1 tab Transmission Status: Pending to [facility] Active and Home Medications: Home Medications Levothyroxine Sodium [Levoxyl] 25 mcg PO DAILY 12/13/15 [History Confirmed 09/29/19 Last Taken 09/29/19] Losartan/Hctz 50/12.5 [Hyzaar 50/12.5] 1 tab PO BID 12/13/15 [History Confirmed 09/29/19 Last Taken 09/29/19] Lovastatin [Mevacor] 20 mg PO HS 12/13/15 [History Confirmed 09/29/19 Last Taken 09/28/19] metFORMIN HCL [Glucophage] 1,500 mg PO TID 12/13/15 [History Confirmed 09/29/19 Last Taken 09/29/19] ALPRAZolam [Xanax] 0.25 mg PO HSP PRN 05/29/19 [History Confirmed 09/29/19 Last Taken 09/28/19] Carbidopa/Levodopa Cr 50/200 [Sinemet Cr 50/200] 1 tab PO HS 05/29/19 [History Confirmed 09/29/19 Last Taken 09/28/19] Naproxen (Pp) [Aleve 220Mg (Pp)] 220 mg PO BID PRN 05/29/19 [History Confirmed 09/29/19 Last Taken 09/29/19 22:00] Nortriptyline [Pamelor] 25 mg PO HS 05/29/19 [History Confirmed 09/29/19 Last Taken 09/28/19] Adult Aspirin 650 mg PO PRN PRN 09/29/19 [History Confirmed 09/29/19 Last Taken 09/29/19 09:00] Iron 65 mg PO DAILY 09/29/19 [History Confirmed 09/29/19 Last Taken 09/29/19] glipiZIDE [Glipizide ER] 5 mg PO DAILY 09/29/19 [History Confirmed 09/29/19 Last Taken 09/29/19] Amantadine 1 tab PO BID 09/30/19 [History Confirmed 09/30/19 Last Taken Unknown] Miralax 1 dose PO DAILYP PRN 09/30/19 [History Confirmed 09/30/19 Last Taken 09/28/19 21:00] Amantadine HCl [Amantadine] 100 mg PO BID capsule 10/04/19 [Rx Last Taken Unknown] Carbidopa/Levodopa 25/100 [Sinemet 25/100] 3 tab PO TID #1 tab 10/04/19 [Rx Last Taken Unknown] HYDROcodone/APAP 5/325MG [[place] 5-325Mg] 1 tab PO Q4HP PRN #14 tab 10/04/19 [Rx Last Taken Unknown] Medical - DS: Hosp Hospital Course: Discharge diagnosis * Complicated E. coli UTI/acute pyelonephritis -de-escalate to Levaquin * Severe sepsis secondary to above clinically resolved on antibiotic coverage. Completed Levaquin. * Acute renal failure secondary to sepsis endorgan dysfunction. Creatinine normalized from 2.1-0.8 * Hyponatremia secondary to thiazide, normalized at 138 * Severe dyskinetic movements including choreoathetosis-much improved following levodopa carbidopa dose reduction to 3 times a day instead of 5 times a day while continuing Sinemet CR HS as per neurology recommendation. Continue amantadine * Parkinson disease continue modified dose levodopa carbidopa as above * DM type II continue sliding-scale insulin/CC diet * Hypertension-continue home meds * Anxiety disorder on as needed Xanax * Hypothyroidism on thyroxine Brief hospital course Ms. Ruiz is a 64 year old F Patient presents the ED complaining of fever and chills for several days as well as low back pain in the middle. She is complained of dysuria and frequency. In the ED she is found to have leukocytosis tachypneic and tachycardic as well as acute kidney injury. She had elevated lactate levels. Her blood pressure stable at the moment. Urinalysis concerning for urinary tract infection. Past urine cultures have grown Citrobacter. She has a history of iron deficiency anemia has been on iron in the past and per notes she has become anemic quickly off of iron. Of note she is anemic here in the ED. she states she is taking iron. Patient denies diarrhea. Patient denies feeling weaker than usual. No gross bleeding per ED. 09/30 Feeling better today. Sitting up eating breakfast. Occasional cough nonproductive does cause a bit of a headache sometimes, otherwise no complaints. Good urine output and renal function improved, lactic acidosis resolved. 10/01-patient doing remarkably better. White count downtrending. Stable hemodynamics. No overnight events except for increasing choreoathetotic dyskinetic movements responded well to amantadine. E. coli on urine culture. On antibiotic coverage. De-escalate based on sensitivities. Transfer out of ICU. Stable hemodynamics. 10/02-patient clinically improving. White count continues to downtrend. He is stable hemodynamics. Case discussed with neurology Dr. Patel at [place]. Recommends lowering levodopa carbidopa for excessive choreoathetotic movements. Continuing amantadine. No overnight fever chills. Discussed with and case management the need for transfer to rehab center in light of significant deconditioning. agreeable. 10/03-patient doing well. Out of bed to chair. Feeling a lot better. Stable hemodynamics and labs. No overnight events. Much improved choreoathetotic movement after lowering dose of levodopa carbidopa. Patient willing for short- term rehab. Anticipate discharge in 24 hours to SNF. Continue antibiotic co verage. De-escalate in 24 hours. 10/04-patient doing well. No overnight events. No concerns per staff. Discharging to SNF advised to continue aggressive PT OT/posthospitalization rehab. No fever chills. Discharge diagnosis: . - Time Spent with Patient Total time spent providing and/or coordinating discharge services: Greater than 30 minutes Medical - DS: Exam - Constitutional Vitals: Vital Signs Temp Pulse Pulse Resp BP BP Pulse Ox 10/04/19 08:00 97.0 F 89 16 180/96 94 10/04/19 03:17 97.5 F 97 H 18 168/90 90 10/03/19 23:32 97.7 F 96 H 18 126/70 90 10/03/19 19:50 100 H 10/03/19 18:34 98.2 F 100 H 128/78 93 10/03/19 18:00 96 H 18 91 10/03/19 12:00 97.6 F 20 141/93 91 Intake and Output 10/03/19 10/04/19 10/04/19 21:59 05:59 13:59 Intake Total 400 Balance 400 Intake: Oral 400 Other: Meal Dinner Percent of Meal Consumed 50% Feeding Ability Independent Urine Appearance Clear Urine Color Bright Yellow Urine Odor Normal Stool Size Small Stool Color Brown Stool Consistency Dry and Hard # Voids 1 1 # Bowel Movements 1 Weight 170 lb 11.2 oz Medical - DS: Data Labs on day of discharge: Labs from last 24 hours 10/04/19 10/04/19 05:57 05:57 WBC 5.8 RBC 3.56 L Hgb 8.7 L Hct 29.0 L MCV 81.5 MCH 24.4 L MCHC 30.0 L RDW 17.0 H Plt Count 335 MPV 8.9 Gran % 54.6 Lymph % (Auto) 28.8 [place] % (Auto) 10.9 Eos % (Auto) 5.2 Baso % (Auto) 0.5 Gran # 3.15 Lymph # (Auto) 1.66 [place] # (Auto) 0.63 Eos # (Auto) 0.30 Baso # (Auto) 0.03 Sodium 137 Potassium 3.6 Chloride 98 Carbon Dioxide 25 Anion Gap 14.0 BUN 18 Creatinine 0.9 GFR Calculation 67 Glucose 123 H Uric Acid 4.4 Calcium 9.3 Phosphorus 3.8 Magnesium 1.4 L Total Bilirubin 0.4 Direct Bilirubin < 0.2 GGT 169 H AST 18 ALT 6 Alkaline Phosphatase 301 H Lactate Dehydrogenase 197 Total Protein 6.5 Albumin 2.9 L Globulin 3.6 Albumin/Globulin Ratio 0.8 L Triglycerides 184 H Preliminary micro results at discharge 09/29/19 19:54 Blood Culture - Preliminary Blood 09/29/19 19:30 Blood Culture - Preliminary Blood Medical - DS: A/P - Patient/Caregiver Discharge Instructions Activity: increase activity as tolerated Diet: Consistent Carbohydrate Additional Instructions: Lower dose of Sinemet to 3 times a day Continue Sinemet CR at bedtime Follow-up PCP in 7 days Follow-up neurology in 2 weeks Continue diabetic diet Aggressive PT OT/ST eval and treatments SNF Prescriptions: HYDROcodone/APAP 5/325MG [[place] 5-325Mg] 1 tab PO Q4HP PRN #14 tab PRN Reason: Pain Level 3-6 Prescription Printed Carbidopa/Levodopa 25/100 [Sinemet 25/100] 3 tab PO TID #1 tab Transmission Status: Pending to [facility] - Follow up Plan Follow up with: Aag Fernández ARNP [Primary Care Provider] - (Please call and schedule a hospital follow up appointment.) Chanel Bañuelos MD [Physician] - 10/07/19 (Please call and schedule appoitment.) Disposition: Xfer SNF Care Plan Goals: This discharge packet is provided to you to help keep you informed about your care. We want to ensure you get everything you need when you go home. You will also be receiving a call from us in a few days to follow up with you and see how you are doing since your discharge. This gives us a chance to listen to any concerns you maybe experiencing since you were discharged or any additional needs you may have, as well as providing us feedback on your care experience. We strive to always provide excellent care and thank you for your feedback and for choosing [facility]. Prognosis: Good Rehab Potential: Fair I certify that the patient requires SNF services: Yes Overall status at discharge: patient is progressing back to baseline
== END 2019-10-04 12:50 | DRG 872 ==
LOC: ED 17:05 → ICU 21:08 → MEDSUR 10-03 13:26
PROVIDERS: ADMIT Internal Medicine; ATTEND Internal Medicine